=== PATIENT | female | born 1950 | race Caucasian/White ===

== ENCOUNTER 2018-06-25 08:26 | Day surgery (SDC) | payer MEDICARE ==
[~2018-06-25] VITALS: Ht 170.2 cm; Wt 70.3 kg
[~2018-06-25 08:26] MED LIST: CALCAVITD PO; CHRO200 PO; FISH1000 PO; FOLI400 PO; GABA800 PO; GEMF600 PO; LOVA40 PO; Lyrica100 MG PO; MULVITMIND PO; Norco 7.5-3251 EACH PO; Nortriptyline H10 MG PO; OCCUVITE LUTEIN PO; OMEG1CAP30 PO; PREG75 PO; Vitamin B Comple1 EA PO; WARF5 PO; WARF6 PO; [UNRECOGNIZED DRUG - CODE] PO
--- NOTE | 2018-06-25 08:48 | NUR ---
PT ADMITTED TO [facility]. AGREES WITH PLANNED PROCEDURE. TOLERATED BOWEL PREP. STATES LAST BM CLEAR.
--- NOTE | 2018-06-25 08:48 | NUR ---
LUNG SOUNDS CLEAR BUT DIMINSHED.
--- NOTE | 2018-06-25 09:24 | NUR ---
06/25/18 0924 Suleiman eVlazco PATIENT DETERMINED TO BE ASA APPROPRIATE FOR PROPOFOL SEDATION PRIOR TO START OF PROCEDURE BY . 3-LEAD EKG REVIEWED WITH PHYSICIAN PRIOR TO START OF PROCEDURE.PATIENT CONFIRMS NPO STATUS AND AGREES WITH SCHEDULED PROCEDURE.History, Chart, Medications and Allergies reviewed before start of procedure.MONITOR INTACT WITH CONTINUOUS PULSE OXIMETRY AND INTERMITTENT BP.O2 VIA N/C INTACT THROUGHOUT SEDATION/PROCEDURE.
--- NOTE | 2018-06-25 10:49 | NUR ---
Patient up to Ambulate independently. Gait steady. Discharge instructions reviewed with patient. Patient verbalizes understanding. Copy given to patient to take home. Patient States Post-Procedure ride home has been arranged. Discharged via wheelchair to private car for ride home.
== END 2018-06-25 10:49 | disposition home or self-care (01) ==
LOC: ORSCMMR 08:26 → ORD 09:30 → ORSCMMR 10:49
PROVIDERS: Internal Medicine Gastroenterology
PROC: 0DBH8ZX Excision of Cecum, Via Natural or Artificial Opening Endoscopic, Diagnostic (ICD-10-PCS; principal; 2018-06-25 09:30)
PROC: 0DBK8ZX Excision of Ascending Colon, Via Natural or Artificial Opening Endoscopic, Diagnostic (ICD-10-PCS; principal; 2018-06-25 09:30)
PROC: 0DBN8ZX Excision of Sigmoid Colon, Via Natural or Artificial Opening Endoscopic, Diagnostic (ICD-10-PCS; principal; 2018-06-25 09:30)
PROC: 0DBM8ZX Excision of Descending Colon, Via Natural or Artificial Opening Endoscopic, Diagnostic (ICD-10-PCS; principal; 2018-06-25 09:30)
PROC: 0DBP8ZX Excision of Rectum, Via Natural or Artificial Opening Endoscopic, Diagnostic (ICD-10-PCS; principal; 2018-06-25 09:30)
DX: Z12.11 Encounter for screening for malignant neoplasm of colon (principal); Z86.010 Personal history of colon polyps; D12.8 Benign neoplasm of rectum; D12.0 Benign neoplasm of cecum; D12.2 Benign neoplasm of ascending colon; K63.5 Polyp of colon; E78.00 Pure hypercholesterolemia, unspecified; Z79.01 Long term (current) use of anticoagulants; Z79.899 Other long term (current) drug therapy; F17.210 Nicotine dependence, cigarettes, uncomplicated
CPT/HCPCS: 88305; J7120

== ENCOUNTER 2020-07-06 13:25 | Emergency (ER) | payer MEDICARE, OTHER ==
[~2020-07-06] VITALS: Ht 170.2 cm; Wt 68.0 kg
[~2020-07-06 13:25] MED LIST changes: -CALCAVITD PO; +Calcium 600-D1 EACH PO; +Coumadin5 MG PO; +FOLI1 PO; -FOLI400 PO; +LOVASTATIN40 MG PO; +NORTRIPTYLINE H10 MG PO; +PREGABALIN100 MG PO; +TRAM50 PO
[2020-07-06 14:25] LABS: BASOPHILS ABSOLUTE AUTO 0.05 K/mm3 (0.00-0.23); BASOPHILS PERCENT AUTO 1 % (0-2); EOSINOPHILS PERCENT AUTO 1 % (0-6); Hematocrit 48.4 % (33.0-51.0); Hemoglobin 15.7 g/dL (11.5-16.0); IMMATURE GRAN ABSOLUTE AUTO 0.02 K/mm3 (0.00-0.10); IMMATURE GRAN PERCENT AUTO 0 % (0-1); LYMPHOCYTES ABSOLUTE AUTO 2.79 K/mm3 (0.84-5.20); LYMPHOCYTES PERCENT AUTO 31 % (21-46); MONOCYTES ABSOLUTE AUTO 0.81 K/mm3 (0.16-1.47); MONOCYTES PERCENT AUTO 9 % (4-13); Mean Corpuscular HGB 30.4 pg (26.0-34.0); Mean Corpuscular HGB Conc 32.4 g/dL (31.5-36.5); Mean Corpuscular Volume 94 fL (80-100); Mean Platelet Volume 11.1 fL (9.1-12.4); NEUTROPHILS ABSOLUTE AUTO 5.34 K/mm3 (1.96-9.15); NEUTROPHILS PERCENT AUTO 59 % (41-73); Platelet Count 301 K/mm3 (150-400); RDW Coefficient Variation 13.8 % (11.7-14.2); RDW Standard Deviation 47.8 fL (35.1-46.3); Red Blood Cell Count 5.16 M/mm3 (3.80-5.20); White Blood Cell Count 9.11 K/mm3 (4.00-11.30)
[2020-07-06 14:47] LABS: Alanine Aminotransfer (ALT/SGP 24 U/L (12-78); Albumin, Blood 3.4 g/dL (3.4-5.0); Albumin/Globulin Ratio 0.9 (0.8-1.8); Alk Phos 95 U/L (50-136); Anion Gap 2 mmol/L (6-16); Aspartate Aminotrans (AST/SGOT 25 U/L (12-37); Bilirubin, Total 0.3 mg/dL (0.1-1.0); Blood Urea Nitrogen 11 mg/dL (8-24); Bun/Creatinine Ratio 19.4 (12.0-20.0); CO2, Blood 33 mmol/L (21-32); Calcium, Blood 9.6 mg/dL (8.5-10.1); Chloride, Blood 107 mmol/L (98-108); Creatinine, Blood 0.57 mg/dL (0.40-1.00); Globulin, Blood 3.6 g/dL (2.2-4.0); Glomerular Filtration Rate >60 (60-); Glucose, Blood 91 mg/dL (70-99); Potassium, Blood 4.6 mmol/L (3.5-5.5); Sodium, Blood 142 mmol/L (136-145)
[2020-07-06] MEDS ORDERED: Cleocin HCl300 MG PO (16:17)
== END 2020-07-06 16:23 | disposition home or self-care (01) ==
LOC: ER 13:25
PROVIDERS: Physician Assistant
DX: J02.9 Acute pharyngitis, unspecified (principal); I10 Essential (primary) hypertension; E78.5 Hyperlipidemia, unspecified; J44.9 Chronic obstructive pulmonary disease, unspecified; F17.210 Nicotine dependence, cigarettes, uncomplicated; Z79.899 Other long term (current) drug therapy; Z86.73 Personal history of transient ischemic attack (TIA), and cerebral infarction without residual deficits; Z79.01 Long term (current) use of anticoagulants; Z88.0 Allergy status to penicillin
CPT/HCPCS: 36415; 71046; 80053; 85025; 93005; 93010; 99283-25

== ENCOUNTER 2020-08-21 15:35 | Emergency (ER) | payer MEDICARE ==
[~2020-08-21] VITALS: Ht 170.2 cm; Wt 68.0 kg
[~2020-08-21 15:35] MED LIST changes: +Cleocin HCl300 MG PO
[2020-08-21] MEDS ORDERED: BUPROPION XL150 M1 (17:47)
== END 2020-08-21 17:53 | disposition home or self-care (01) ==
LOC: ER 15:35
DX: S62.617A Displaced fracture of proximal phalanx of left little finger, initial encounter for closed fracture (principal); I10 Essential (primary) hypertension; Z79.01 Long term (current) use of anticoagulants; Z79.899 Other long term (current) drug therapy; W19.XXXA Unspecified fall, initial encounter
CPT/HCPCS: 29125; 73120; 99283-25; A9270

== ENCOUNTER → 2021-08-19 | Outpatient (CLI) | payer OTHER ==
[~2021-08-19] MED LIST changes: +BUPROPION XL150 M1
[2021-08-19 19:29] LABS: BASOPHILS ABSOLUTE AUTO 0.08 K/mm3 (0.00-0.23); BASOPHILS PERCENT AUTO 1 % (0-2); EOSINOPHILS ABSOLUTE AUTO 0.18 K/mm3 (0.00-0.68); EOSINOPHILS PERCENT AUTO 2 % (0-6); Hematocrit 47.4 % (33.0-51.0); IMMATURE GRAN ABSOLUTE AUTO 0.04 K/mm3 (0.00-0.10); IMMATURE GRAN PERCENT AUTO 0 % (0-1); LYMPHOCYTES ABSOLUTE AUTO 2.79 K/mm3 (0.84-5.20); LYMPHOCYTES PERCENT AUTO 27 % (21-46); MONOCYTES PERCENT AUTO 8 % (4-13); Mean Corpuscular HGB 29.6 pg (26.0-34.0); Mean Corpuscular HGB Conc 31.6 g/dL (31.5-36.5); Mean Corpuscular Volume 94 fL (80-100); Mean Platelet Volume 11.6 fL (9.1-12.4); NEUTROPHILS ABSOLUTE AUTO 6.45 K/mm3 (1.96-9.15); NEUTROPHILS PERCENT AUTO 62 % (41-73); Platelet Count 326 K/mm3 (150-400); RDW Coefficient Variation 14.3 % (11.7-14.2); RDW Standard Deviation 49.1 fL (35.1-46.3); Red Blood Cell Count 5.06 M/mm3 (3.80-5.20); White Blood Cell Count 10.34 K/mm3 (4.00-11.30)
[2021-08-19 20:16] LABS: Alanine Aminotransfer (ALT/SGP 133 U/L (12-78); Albumin, Blood 3.8 g/dL (3.4-5.0); Albumin/Globulin Ratio 1.1 (0.8-1.8); Alk Phos 136 U/L (50-136); Anion Gap 2 mmol/L (6-16); Aspartate Aminotrans (AST/SGOT 89 U/L (12-37); Bilirubin, Total 0.4 mg/dL (0.1-1.0); Blood Urea Nitrogen 18 mg/dL (8-24); Bun/Creatinine Ratio 30.5 (12.0-20.0); CO2, Blood 33 mmol/L (21-32); Calcium, Blood 9.7 mg/dL (8.5-10.1); Chloride, Blood 104 mmol/L (98-108); Creatinine, Blood 0.59 mg/dL (0.40-1.00); Globulin, Blood 3.6 g/dL (2.2-4.0); Glomerular Filtration Rate >60 (60-); Glucose, Blood 104 mg/dL (70-99); Magnesium, Blood 2.2 mg/dL (1.6-2.4); Phosphorus, Blood 3.2 mg/dL (2.5-4.9); Sodium, Blood 139 mmol/L (136-145); Total Protein, Blood 7.4 g/dL (6.4-8.2)
== END | disposition home or self-care (01) ==
LOC: LAB SHORT 18:49
PROVIDERS: Family Medicine
DX: R56.9 Unspecified convulsions (principal)
CPT/HCPCS: 80053; 82607; 82746; 83735; 84100; 84443; 85025; 86592

== ENCOUNTER 2022-03-18 15:46 | Emergency (ER) | payer MEDICARE ==
[~2022-03-18] VITALS: Ht 170.2 cm; Wt 68.0 kg
== END 2022-03-18 17:58 | disposition home or self-care (01) ==
LOC: ER 15:46
DX: S63.250A Unspecified dislocation of right index finger, initial encounter (principal); V48.4XXA Person boarding or alighting a car injured in noncollision transport accident, initial encounter; I10 Essential (primary) hypertension; J44.9 Chronic obstructive pulmonary disease, unspecified; E78.5 Hyperlipidemia, unspecified; F17.210 Nicotine dependence, cigarettes, uncomplicated; Z79.899 Other long term (current) drug therapy; Z79.01 Long term (current) use of anticoagulants; Z88.0 Allergy status to penicillin
CPT/HCPCS: 73130

== ENCOUNTER 2022-12-05 17:12 | Emergency (ER) | payer MEDICARE ==
[~2022-12-05] VITALS: Ht 170.2 cm; Wt 68.0 kg
[2022-12-05] MEDS ORDERED: Percocet 5-3251 EACH PO (18:55)
[2022-12-05 19:10] VITALS: BP 153/85
== END 2022-12-05 19:25 | disposition home or self-care (01) ==
LOC: ER 17:12
DX: S09.90XA Unspecified injury of head, initial encounter (principal); S22.31XA Fracture of one rib, right side, initial encounter for closed fracture; W18.30XA Fall on same level, unspecified, initial encounter; Z88.0 Allergy status to penicillin; Z79.01 Long term (current) use of anticoagulants; Z79.899 Other long term (current) drug therapy; I10 Essential (primary) hypertension; J44.9 Chronic obstructive pulmonary disease, unspecified; E78.5 Hyperlipidemia, unspecified; F17.210 Nicotine dependence, cigarettes, uncomplicated
CPT/HCPCS: 70450; 71101; A9270

== ENCOUNTER 2022-12-13 12:37 | Emergency (ER) | payer MEDICARE ==
[~2022-12-13] VITALS: Ht 170.2 cm; Wt 68.0 kg
[~2022-12-13 12:37] MED LIST changes: +Percocet 5-3251 EACH PO
[2022-12-13 12:45] VITALS: BP 149/100
== END 2022-12-13 13:57 | disposition home or self-care (01) ==
LOC: ER 12:37
DX: R51.9 Headache, unspecified (principal); S09.90XD Unspecified injury of head, subsequent encounter; W19.XXXD Unspecified fall, subsequent encounter; I10 Essential (primary) hypertension; J44.9 Chronic obstructive pulmonary disease, unspecified; E78.5 Hyperlipidemia, unspecified; Z88.0 Allergy status to penicillin; Z79.899 Other long term (current) drug therapy; Z79.01 Long term (current) use of anticoagulants; F17.210 Nicotine dependence, cigarettes, uncomplicated
CPT/HCPCS: 70450; 99284-25

== ENCOUNTER 2022-12-22 22:37 | Emergency (ER) | payer MEDICARE ==
[~2022-12-22] VITALS: Ht 170.2 cm; Wt 72.6 kg
[~2022-12-22 22:37] MED LIST changes: -BUPROPION XL150 M1; +BUPROPION XL150 M1 PO
[2022-12-23 01:00] VITALS: BP 190/65
== END 2022-12-23 01:50 | disposition home or self-care (01) ==
LOC: ER 22:37
DX: S01.122A Laceration with foreign body of left eyelid and periocular area, initial encounter (principal); W18.09XA Striking against other object with subsequent fall, initial encounter; Z88.0 Allergy status to penicillin; Z79.01 Long term (current) use of anticoagulants; Z79.899 Other long term (current) drug therapy; I10 Essential (primary) hypertension; E78.5 Hyperlipidemia, unspecified; F17.210 Nicotine dependence, cigarettes, uncomplicated; Z23 Encounter for immunization
CPT/HCPCS: 12011; 70450; 90471; 90715; 99283-25; A9270

== ENCOUNTER 2022-12-23 14:01 | Emergency (ER) | payer MEDICARE ==
[~2022-12-23] VITALS: Ht 170.2 cm; Wt 72.6 kg
[2022-12-23 15:26] LABS: BASOPHILS ABSOLUTE AUTO 0.06 K/mm3 (0.00-0.23); BASOPHILS PERCENT AUTO 1 % (0-2); EOSINOPHILS ABSOLUTE AUTO 0.16 K/mm3 (0.00-0.68); EOSINOPHILS PERCENT AUTO 2 % (0-6); Hematocrit 42.2 % (33.0-51.0); Hemoglobin 13.8 g/dL (11.5-16.0); IMMATURE GRAN ABSOLUTE AUTO 0.02 K/mm3 (0.00-0.10); IMMATURE GRAN PERCENT AUTO 0 % (0-1); LYMPHOCYTES ABSOLUTE AUTO 1.81 K/mm3 (0.84-5.20); LYMPHOCYTES PERCENT AUTO 21 % (21-46); MONOCYTES ABSOLUTE AUTO 0.88 K/mm3 (0.16-1.47); MONOCYTES PERCENT AUTO 10 % (4-13); Mean Corpuscular HGB 29.6 pg (26.0-34.0); Mean Corpuscular HGB Conc 32.7 g/dL (31.5-36.5); Mean Corpuscular Volume 90 fL (80-100); Mean Platelet Volume 10.8 fL (9.1-12.4); NEUTROPHILS ABSOLUTE AUTO 5.73 K/mm3 (1.96-9.15); NEUTROPHILS PERCENT AUTO 66 % (41-73); Platelet Count 258 K/mm3 (150-400); RDW Coefficient Variation 14.6 % (11.7-14.2); RDW Standard Deviation 48.7 fL (35.1-46.3); Red Blood Cell Count 4.67 M/mm3 (3.80-5.20); White Blood Cell Count 8.66 K/mm3 (4.00-11.30)
[2022-12-23 15:42] LABS: Albumin, Blood 3.3 g/dL (3.4-5.0); Albumin/Globulin Ratio 0.9 (0.8-1.8); Bilirubin, Total 0.4 mg/dL (0.1-1.0); Calcium, Blood 9.1 mg/dL (8.5-10.1); Creatinine, Blood 0.69 mg/dL (0.40-1.00); Globulin, Blood 3.5 g/dL (2.2-4.0); Potassium, Blood 4.1 mmol/L (3.5-5.5); Total Protein, Blood 6.8 g/dL (6.4-8.2)
[2022-12-23 15:58] VITALS: BP 133/60
== END 2022-12-23 18:34 | disposition home or self-care (01) ==
LOC: ER 14:01
PROVIDERS: Student in an Organized Health Care Education/Training Program
DX: H53.8 Other visual disturbances (principal); S00.1 Contusion of eyelid and periocular area; W19.XXXS Unspecified fall, sequela; Z88.0 Allergy status to penicillin; Z79.899 Other long term (current) drug therapy; Z79.01 Long term (current) use of anticoagulants; I10 Essential (primary) hypertension; J44.9 Chronic obstructive pulmonary disease, unspecified; E78.5 Hyperlipidemia, unspecified; Z86.718 Personal history of other venous thrombosis and embolism; F17.210 Nicotine dependence, cigarettes, uncomplicated
CPT/HCPCS: 80053; 85025; 93005; 93010; 99283-25; A9270

== ENCOUNTER 2023-04-19 11:50 | Day surgery (SDC) | payer MEDICARE ==
[~2023-04-19] VITALS: Ht 170.2 cm; Wt 75.5 kg
[2023-04-19] MEDS ORDERED: FISH OIL 1,0001 EA10 PO (12:59)
[2023-04-19] MEDS ORDERED: Aspir 8181 MG PO (13:01)
--- NOTE | 2023-04-19 13:55 | NUR ---
04/19/23 1355 Karla Dubon PT'S O2 SATS PRIMARILY STAYED BETWEEN 87-90% THROUGHOUT PREOP STAY. THE HIGHEST SPO2 READING WAS ONE OCCASION IN WHICH SPO2 WAS 92% MOMENTARILY BEFORE DROPPING BACK DOWN TO 88%. PT REPORTS SOB FOR THE LAST 4-6 WEEKS. STATES SHE HAS TALKED TO HER PCP ABOUT THIS AND THAT THIS WAS ABOUT THE TIME THAT SHE ALSO STARTED HAVING ABDOMINAL DISCOMFORT. DR WINTERS ORDERED CXR AND IMAGING CAME TO [facility] TO PERFORM CXR. PT DENIES RECENT COUGH, FEVER. PT VERBALIZES THAT SHE WAS TOLD AT A RECENT DOCTOR APPT THAT HER OXYGEN LEVEL WAS 88% AND THAT THIS WAS REALLY LOW. AT TIMES T/O PREOP STAY PATIENT'S RESPIRATIONS APPEAR LABORED AND AT OTHER TIMES SHE APPEARS TO BREATHING WITHOUT MUCH DIFFICULTY. LS ARE CLEAR BUT DECREASED T/O. ESPECIALLY ON RAF. AFTER CONSULTATION BETWEEN DR WINTERS AND DR DIXON, IT WAS DECIDED TO PROCEED WITH PROCEDURE UNDER MAC SEDATION.
--- NOTE | 2023-04-19 13:58 | NUR ---
04/19/23 1358 Lily So LIDOCAINE 2% WITH EPI 1:100,000 DILUTED 1:1 WITH NORMAL SALINE TO MAKE LIDOCAINE 1% WITH EPI 1:200,000 FOR INJECTION [address] [facility] BY DR DIXON.
[2023-04-19 14:33] VITALS: BP 153/95
--- NOTE | 2023-04-19 14:37 | NUR ---
04/19/23 1437 Troy Wagner PT TRANSFERED FROM PACU TO ED, PER DR. WINTERS ORDERS. IV SALINE LOCKED. WHEEZES ASCULTATED IN R UPPER LUNG LOBE. PT MAINTAING O2 SATURATION 86-90% ON RA.
[2023-04-19] MEDS ORDERED: WARF2.5 PO (22:32)
[2023-04-19] MEDS ORDERED: WARF5 PO (22:32)
== END 2023-04-19 16:00 | disposition home or self-care (01) ==
LOC: ORSCSDS 11:50
PROVIDERS: Otolaryngology
PROC: 07B20ZX Excision of Left Neck Lymphatic, Open Approach, Diagnostic (ICD-10-PCS; principal; 2023-04-19 13:15)
DX: R59.0 Localized enlarged lymph nodes (principal); C83.31 Diffuse large B-cell lymphoma, lymph nodes of head, face, and neck; G40.909 Epilepsy, unspecified, not intractable, without status epilepticus; Z86.718 Personal history of other venous thrombosis and embolism; Z79.01 Long term (current) use of anticoagulants; Z79.899 Other long term (current) drug therapy; Z79.82 Long term (current) use of aspirin; Z87.891 Personal history of nicotine dependence
CPT/HCPCS: 71045; 88184; 88185; 88305; J0171; J2704; J3010; J7120

== ENCOUNTER 2023-04-19 14:51 | Observation (INO) | payer MEDICARE ==
[~2023-04-19] VITALS: Ht 170.2 cm; Wt 76.9 kg
[~2023-04-19 14:51] MED LIST changes: +Aspir 8181 MG PO; +FISH OIL 1,0001 EA10 PO
[2023-04-19 15:35] LABS: BASOPHILS ABSOLUTE AUTO 0.06 K/mm3 (0.00-0.23); BASOPHILS PERCENT AUTO 1 % (0-2); EOSINOPHILS ABSOLUTE AUTO 0.07 K/mm3 (0.00-0.68); EOSINOPHILS PERCENT AUTO 1 % (0-6); Hematocrit 42.3 % (33.0-51.0); Hemoglobin 12.9 g/dL (11.5-16.0); IMMATURE GRAN ABSOLUTE AUTO 0.05 K/mm3 (0.00-0.10); IMMATURE GRAN PERCENT AUTO 1 % (0-1); LYMPHOCYTES PERCENT AUTO 20 % (21-46); MONOCYTES ABSOLUTE AUTO 0.88 K/mm3 (0.16-1.47); MONOCYTES PERCENT AUTO 12 % (4-13); Mean Corpuscular HGB 27.9 pg (26.0-34.0); Mean Corpuscular HGB Conc 30.5 g/dL (31.5-36.5); Mean Corpuscular Volume 92 fL (80-100); Mean Platelet Volume 10.8 fL (9.1-12.4); NEUTROPHILS ABSOLUTE AUTO 5.04 K/mm3 (1.96-9.15); NEUTROPHILS PERCENT AUTO 66 % (41-73); Platelet Count 170 K/mm3 (150-400); RDW Coefficient Variation 14.9 % (11.7-14.2); RDW Standard Deviation 49.9 fL (35.1-46.3); Red Blood Cell Count 4.62 M/mm3 (3.80-5.20)
[2023-04-19 16:02] LABS: Albumin, Blood 2.6 g/dL (3.4-5.0); Albumin/Globulin Ratio 0.7 (0.8-1.8); Bilirubin, Total 0.6 mg/dL (0.1-1.0); Bun/Creatinine Ratio 15.7 (12.0-20.0); Calcium, Blood 7.7 mg/dL (8.5-10.1); Creatinine, Blood 0.64 mg/dL (0.40-1.00); Globulin, Blood 3.6 g/dL (2.2-4.0); Potassium, Blood 4.1 mmol/L (3.5-5.5); Total Protein, Blood 6.2 g/dL (6.4-8.2)
[2023-04-19 16:21] LABS: Influenza A, PCR NEGATIVE (NEGATIVE); Influenza B, PCR NEGATIVE (NEGATIVE); Resp Syncytial Virus, PCR NEGATIVE (NEGATIVE); SARS-Cov-2 (COVID-19) PCR, MMC NEGATIVE (NEGATIVE)
[2023-04-19] MEDS ORDERED: FentaNYL Citrate 50 MCG/ML 2 ML Injection IV ONE (17:20)
[2023-04-19 17:53] LABS: International Normalized Ratio 1.14; Prothrombin Time Results 11.9 Sec (9.7-11.5)
[2023-04-19 18:00] LABS: Base Excess Venous 5.8 mmol/L; Bicarbonate Venous 28.6 mmol/L (24.0-30.0); PCO2 Venous 50.6 mmHg (38-42); pH Blood Venous 7.39 (7.34-7.37)
[2023-04-19] MEDS ORDERED: Furosemide 10 MG/ML 4ML Vial IV ONE (20:00)
[2023-04-19] MEDS ORDERED: Ipratropium/Albuterol SulF 2.5-0.5MG/3 ML Amp INH SCH (20:45)
[2023-04-19] MEDS ORDERED: FLU VACC QS2023-24(6MOS UP)/PF 60 MCG/0.5 ML SYRINGE IM SCH (20:50)
[2023-04-19] MEDS ORDERED: Morphine Sulfate 4 MG/1 ML Injection IV PRN (20:50)
[2023-04-19] MEDS ORDERED: Ondansetron HCl 2 MG / ML 2ML Vial IV PRN (20:50)
[2023-04-19] MEDS ORDERED: Ipratropium/Albuterol SulF 2.5-0.5MG/3 ML Amp INH ONE (21:00)
[2023-04-19] MEDS ORDERED: Enoxaparin 40 MG/0.4 ML SYR SC ONE (21:00)
[2023-04-19] MEDS ORDERED: WARF5 PO (22:32)
[2023-04-19] MEDS ORDERED: WARF2.5 PO (22:32)
--- NOTE | 2023-04-19 22:33 | NUR ---
ADMIT NOTE RECEIVED REPORT FROM PORTABLE GRINDING MACHINE OPERATORALTAF LINK. PT ARRIVED TO FLOOR VIA JIMMYRAYAAN. PT ORIENTED TO UNIT CALL BUTTON WITHIN REACH. PERSONAL POSSESSIONS WITH PT. 2 LPM O2 VIA NC.
[2023-04-19] MEDS ORDERED: Warfarin Sodium 5 MG Tab PO ONE (22:35)
[2023-04-19 22:45] VITALS: BP 146/65
[2023-04-20 02:30] VITALS: BP 149/65
--- NOTE | 2023-04-20 04:13 | NUR ---
SHIFT SUMMARY ADMITTED FOR HYPOXIA/DR. LUND. FULL CODE. 2 LPM O2 VIA NC. SHE IS ON RA AT HOME. A&O X4, ON RA. STANDBY ASSIST TO BSC. LASIX IS SCHEDULED. LYMPH NODE BIOPSY PERFORMED OUTPT TODAY PREVIOUS TO ADMIT. PAIN MEDICATION GIVEN ONCE THIS SHIFT. REGULAR DIET. RESPIRATORY PANEL NEGATIVE.
[2023-04-20 05:05] LABS: International Normalized Ratio 1.15
[2023-04-20 05:11] LABS: Bun/Creatinine Ratio 17.5 (12.0-20.0); Calcium, Blood 8.4 mg/dL (8.5-10.1); Creatinine, Blood 0.63 mg/dL (0.40-1.00); Potassium, Blood 4.1 mmol/L (3.5-5.5)
[2023-04-20 07:32] VITALS: BP 140/53
[2023-04-20] MEDS ORDERED: Furosemide 10 MG / ML 2ML Vial IV SCH (09:00)
[2023-04-20 15:49] VITALS: BP 150/63
[2023-04-20] MEDS ORDERED: Warfarin Sodium 7.5 MG Tab PO ONE (18:00)
--- NOTE | 2023-04-20 19:21 | NUR ---
DISCHARGE HOME PT DISCHARGED HOME. HOME MEDICATIONS RETRIEVED FROM PHARMACY AND GIVEN TO PT. IV REMOVED AND PRESSURE DRESSING APPLIED. PT HAS HER HOME OXYGEN TANK SET AT 2L N/C. SHE HAS [employer] CARD TO CALL WHEN SHE GETS HOME. CARE ON GOING.
== END 2023-04-20 19:20 | disposition home or self-care (01) ==
LOC: ER 14:51 → MEDS 14:52
PROVIDERS: Nurse Practitioner Acute Care; Student in an Organized Health Care Education/Training Program; ADMIT Internal Medicine
DX: J96.01 Acute respiratory failure with hypoxia (principal); J96.02 Acute respiratory failure with hypercapnia; J81.1 Chronic pulmonary edema; C85.94 Non-Hodgkin lymphoma, unspecified, lymph nodes of axilla and upper limb; C85.91 Non-Hodgkin lymphoma, unspecified, lymph nodes of head, face, and neck; J44.9 Chronic obstructive pulmonary disease, unspecified; I10 Essential (primary) hypertension; E78.5 Hyperlipidemia, unspecified; I73.9 Peripheral vascular disease, unspecified; F17.210 Nicotine dependence, cigarettes, uncomplicated; Z86.718 Personal history of other venous thrombosis and embolism; Z88.0 Allergy status to penicillin; Z79.01 Long term (current) use of anticoagulants; Z79.82 Long term (current) use of aspirin; Z79.899 Other long term (current) drug therapy; R59.0 Localized enlarged lymph nodes; C83.31 Diffuse large B-cell lymphoma, lymph nodes of head, face, and neck; G40.909 Epilepsy, unspecified, not intractable, without status epilepticus
CPT/HCPCS: 0241U; 36415; 71045; 71260; 80048; 80053; 82803; 83735; 83880; 84145; 84484; 85025; 85379; 85610; 88305; 93005; 93010; 93306; 94640; 94664; 94760; 94761; 96372; 96374; 96375; 96376; 99285-25; A9270; G0008; G0378; J0171; J1650; J1940; J2270; J2704; J3010; J7120; Q2036; Q9967

== ENCOUNTER → 2023-04-27 | Outpatient (CLI) | payer MEDICARE ==
[~2023-04-27] MED LIST changes: +WARF2.5 PO
[2023-04-27 20:18] LABS: Albumin, Blood 2.7 g/dL (3.4-5.0); Albumin/Globulin Ratio 0.8 (0.8-1.8); Bilirubin, Total 0.5 mg/dL (0.1-1.0); Bun/Creatinine Ratio 18.1 (12.0-20.0); Calcium, Blood 8.8 mg/dL (8.5-10.1); Creatinine, Blood 0.77 mg/dL (0.40-1.00); Globulin, Blood 3.4 g/dL (2.2-4.0); Phosphorus, Blood 3.3 mg/dL (2.5-4.9); Potassium, Blood 4.7 mmol/L (3.5-5.5); Total Protein, Blood 6.1 g/dL (6.4-8.2); Uric Acid, Blood 8.3 mg/dL (2.6-6.0)
== END ==
LOC: LAB 17:30 → LAB SHORT 17:30
PROVIDERS: Internal Medicine Hematology & Oncology
DX: C85.91 Non-Hodgkin lymphoma, unspecified, lymph nodes of head, face, and neck (principal)
CPT/HCPCS: 80053; 83615; 84100; 84550

== ENCOUNTER → 2023-05-05 | Outpatient (CLI) | payer MEDICARE ==
[2023-05-05 17:44] LABS: Bilirubin, Total 0.3 mg/dL (0.1-1.0); Bun/Creatinine Ratio 31.5 (12.0-20.0); Calcium, Blood 8.8 mg/dL (8.5-10.1); Creatinine, Blood 0.54 mg/dL (0.40-1.00); Phosphorus, Blood 3.6 mg/dL (2.5-4.9); Potassium, Blood 4.3 mmol/L (3.5-5.5)
== END | disposition home or self-care (01) ==
LOC: LAB SHORT 14:46 → LAB 14:46
PROVIDERS: Internal Medicine Hematology & Oncology
DX: C85.91 Non-Hodgkin lymphoma, unspecified, lymph nodes of head, face, and neck (principal)
CPT/HCPCS: 80053; 83615; 84100

== ENCOUNTER → 2023-05-31 | Outpatient (CLI) | payer MEDICARE ==
[2023-05-31 17:39] LABS: Uric Acid, Blood 5.1 mg/dL (2.6-6.0)
[2023-06-01 09:11] LABS: A/G RATIO 1.8 (1.2-2.2); ALKALINE PHOSPHATASE, S 72 IU/L (44-121); ALT (SGPT) 14 IU/L (0-32); AST (SGOT) 22 IU/L (0-40); BILIRUBIN, TOTAL 0.7 mg/dL (0.0-1.2); BUN 12 mg/dL (8-27); BUN/CREATININE RATIO 18 (12-28); CALCIUM, SERUM 9.3 mg/dL (8.7-10.3); CARBON DIOXIDE, TOTAL 25 mmol/L (20-29); CHLORIDE, SERUM 105 mmol/L (96-106); CREATININE, SERUM 0.67 mg/dL (0.57-1.00); GLOBULIN, TOTAL 2.2 g/dL (1.5-4.5); GLUCOSE, SERUM 135 mg/dL (70-99); POTASSIUM, SERUM 4.2 mmol/L (3.5-5.2); PROTEIN, TOTAL, SERUM 6.1 g/dL (6.0-8.5); SODIUM, SERUM 143 mmol/L (134-144)
== END | disposition home or self-care (01) ==
LOC: LAB 10:00 → LAB SHORT 10:00
PROVIDERS: Internal Medicine Hematology & Oncology
DX: C85.91 Non-Hodgkin lymphoma, unspecified, lymph nodes of head, face, and neck (principal)
CPT/HCPCS: 80053; 80069; 83615; 84550

== ENCOUNTER 2023-06-07 07:59 | Day surgery (SDC) | payer MEDICARE ==
--- NOTE | 2023-06-07 08:22 | NUR ---
PT ARRIVING TO [facility] AND REPORTING THAT SHE HAD DRANK YAKUT CREAM AT APPROX 0200 WELL TOOK BOTH HER ASPIRIN AND WARFARIN ON 06/06/23. DR. BANEGAS NOTIFIED OF THIS AND THE PROCEDURE IS CANCELLED.
== END 2023-06-07 23:23 | disposition home or self-care (01) ==
LOC: ORSCMMR 07:59 → ORD 09:30 → ORSCMMR 09:30
DX: C85.91 Non-Hodgkin lymphoma, unspecified, lymph nodes of head, face, and neck (principal); Z53.9 Procedure and treatment not carried out, unspecified reason

== ENCOUNTER 2023-06-16 07:58 | Day surgery (SDC) | payer MEDICARE ==
[~2023-06-16] VITALS: Ht 170.2 cm; Wt 72.5 kg
[2023-06-16] VITALS (10 sets, daily range): BP systolic 140–186; BP diastolic 60–89
[~2023-06-16 07:58] MED LIST changes: +CeFAZolin Sodium 2,000 MG in NS 50 ML IV SCH; +Lactated Ringer's 1,000 ML IV SCH
[2023-06-16] MEDS ORDERED: FURO40 PO (08:58)
[2023-06-16] MEDS ORDERED: ALLO300 PO (08:58)
[2023-06-16] MEDS ORDERED: POTA10T PO (08:58)
[2023-06-16] MEDS ORDERED: ASPI81CH PO (08:59)
--- NOTE | 2023-06-16 09:02 | NUR ---
Ambulatory in Day Surgery History, Chart, Medications and Allergies reviewed before start of procedure. Pre-Op teaching done. Pt verbalizes understanding. Patient States Post-Procedure ride home has been arranged.
[2023-06-16] MEDS ORDERED: Bupivacaine 0.5% HCl 5 MG/ML 30MLVIAL ONE (09:33)
[2023-06-16] MEDS ORDERED: LOVA40 PO (09:50)
[2023-06-16] MEDS ORDERED: PREG75 PO (09:51)
[2023-06-16] MEDS ORDERED: OCUVITE BLUE L1 EACH PO (09:58)
[2023-06-16] MEDS ORDERED: propofoL 20 ML IV ONE (10:00)
[2023-06-16] MEDS ORDERED: FentaNYL Citrate 50 MCG/ML 2 ML Injection ONE (10:00)
[2023-06-16] MEDS ORDERED: Ondansetron HCl 2 MG / ML 2ML Vial ONE (10:01)
[2023-06-16] MEDS ORDERED: Dexamethasone Sod Phos 10 MG/ML 1ML VIAL ONE (10:01)
[2023-06-16 10:04] LABS: International Normalized Ratio 1.04; Prothrombin Time Results 10.9 Sec (9.7-11.5)
[2023-06-16 10:18] LABS: Bun/Creatinine Ratio 35.1 (12.0-20.0); Calcium, Blood 9.4 mg/dL (8.5-10.1); Creatinine, Blood 0.6 mg/dL (0.40-1.00); Potassium, Blood 3.8 mmol/L (3.5-5.5)
[2023-06-16] MEDS ORDERED: Ketorolac Tromethamine 30mg Vial ONE (10:26)
[2023-06-16] MEDS ORDERED: Droperidol 5 mg/2 ml Vial IV PRN (10:30)
[2023-06-16] MEDS ORDERED: FentaNYL Citrate 50 MCG/ML 2 ML Injection IV PRN (10:30)
[2023-06-16] MEDS ORDERED: Albuterol 2.5 MG/3 ML VIAL INH PRN (10:30)
[2023-06-16] MEDS ORDERED: HYDROmorphone HCl/Pf 1MG SYR IV PRN (10:35)
--- NOTE | 2023-06-16 12:16 | NUR ---
Discharge instructions reviewed with patient. Patient verbalizes understanding. Copy given to patient to take home. Patient States Post-Procedure ride home has been arranged. Physical prescription given to pt's corporate driver. Discharged via wheelchair to private car for ride home.
== END 2023-06-16 12:15 | disposition home or self-care (01) ==
LOC: ORSCMMR 07:58 → ORD 09:15 → ORSCMMR 09:15
PROVIDERS: Surgery
PROC: 0JH63WZ Insertion of Totally Implantable Vascular Access Device into Chest Subcutaneous Tissue and Fascia, Percutaneous Approach (ICD-10-PCS; principal; 2023-06-16 09:15)
PROC: B543ZZA Ultrasonography of Right Jugular Veins, Guidance (ICD-10-PCS; principal; 2023-06-16 09:15)
PROC: 05HM33Z Insertion of Infusion Device into Right Internal Jugular Vein, Percutaneous Approach (ICD-10-PCS; principal; 2023-06-16 09:15)
DX: C83.38 Diffuse large B-cell lymphoma, lymph nodes of multiple sites (principal); Z79.01 Long term (current) use of anticoagulants; F17.210 Nicotine dependence, cigarettes, uncomplicated; J44.9 Chronic obstructive pulmonary disease, unspecified; E11.9 Type 2 diabetes mellitus without complications; E78.5 Hyperlipidemia, unspecified; I10 Essential (primary) hypertension; Z79.899 Other long term (current) drug therapy; Z79.82 Long term (current) use of aspirin
CPT/HCPCS: 36415; 77001; 80048; 82947; 85610; C1788; J0690; J1100; J1642; J1885; J2405; J2704; J3010; J7120

== ENCOUNTER → 2023-06-27 | Outpatient (CLI) | payer MEDICARE ==
[~2023-06-27] MED LIST changes: +ALLO300 PO; +ASPI81CH PO; -CeFAZolin Sodium 2,000 MG in NS 50 ML IV SCH; +FURO40 PO; -Lactated Ringer's 1,000 ML IV SCH; +OCUVITE BLUE L1 EACH PO; +POTA10T PO
[2023-06-27 20:21] LABS: Albumin, Blood 3.4 g/dL (3.4-5.0); Albumin/Globulin Ratio 1.1 (0.8-1.8); Bilirubin, Total 1.7 mg/dL (0.1-1.0); Bun/Creatinine Ratio 29.9 (12.0-20.0); Calcium, Blood 9.1 mg/dL (8.5-10.1); Creatinine, Blood 0.54 mg/dL (0.40-1.00); Phosphorus, Blood 2.8 mg/dL (2.5-4.9); Potassium, Blood 4.2 mmol/L (3.5-5.5); Total Protein, Blood 6.4 g/dL (6.4-8.2)
== END | disposition home or self-care (01) ==
LOC: LAB 17:13 → LAB SHORT 17:13
PROVIDERS: Internal Medicine Hematology & Oncology
DX: R19.7 Diarrhea, unspecified (principal)
CPT/HCPCS: 80053; 84100

== ENCOUNTER 2023-06-29 21:40 | Emergency (ER) | payer MEDICARE ==
[~2023-06-29] VITALS: Ht 165.1 cm; Wt 77.1 kg
[2023-06-29 21:51] VITALS: BP 141/65
[2023-06-29 22:14] LABS: BASOPHILS ABSOLUTE AUTO 0.02 K/mm3 (0.00-0.23); BASOPHILS PERCENT AUTO 1 % (0-2); EOSINOPHILS PERCENT AUTO 0 % (0-6); Hematocrit 37.1 % (33.0-51.0); Hemoglobin 11.6 g/dL (11.5-16.0); IMMATURE GRAN ABSOLUTE AUTO 0.02 K/mm3 (0.00-0.10); IMMATURE GRAN PERCENT AUTO 1 % (0-1); LYMPHOCYTES PERCENT AUTO 50 % (21-46); MONOCYTES ABSOLUTE AUTO 0.16 K/mm3 (0.16-1.47); MONOCYTES PERCENT AUTO 5 % (4-13); Mean Corpuscular HGB 27.9 pg (26.0-34.0); Mean Corpuscular HGB Conc 31.3 g/dL (31.5-36.5); Mean Corpuscular Volume 89 fL (80-100); Mean Platelet Volume 11.1 fL (9.1-12.4); NEUTROPHILS ABSOLUTE AUTO 1.28 K/mm3 (1.96-9.15); NEUTROPHILS PERCENT AUTO 43 % (41-73); Platelet Count 263 K/mm3 (150-400); RDW Coefficient Variation 16.3 % (11.7-14.2); RDW Standard Deviation 53.5 fL (35.1-46.3); Red Blood Cell Count 4.16 M/mm3 (3.80-5.20); White Blood Cell Count 2.98 K/mm3 (4.00-11.30)
[2023-06-29 22:38] LABS: Ethanol (Alcohol), Blood, Med <3 mg/dL
[2023-06-29 22:39] LABS: Magnesium, Blood 1.8 mg/dL (1.6-2.4)
[2023-06-29] MEDS ORDERED: Lactated Ringer's 1,000 ML IV ONE (22:40)
[2023-06-29 22:50] LABS: Alanine Aminotransfer (ALT/SGP 25 U/L (12-78); Albumin, Blood 3.5 g/dL (3.4-5.0); Alk Phos 68 U/L (50-136); Anion Gap Unable to Calculate mmol/L (6-16); Aspartate Aminotrans (AST/SGOT 18 U/L (12-37); Bilirubin, Total 0.3 mg/dL (0.1-1.0); Blood Urea Nitrogen 13 mg/dL (8-24); Bun/Creatinine Ratio 19.1 (12.0-20.0); CO2, Blood 33 mmol/L (21-32); Calcium, Blood 9.3 mg/dL (8.5-10.1); Chloride, Blood 107 mmol/L (98-108); Creatinine, Blood 0.68 mg/dL (0.40-1.00); Globulin, Blood 3.6 g/dL (2.2-4.0); Glomerular Filtration Rate 93 (60-); Glucose, Blood 212 mg/dL (70-99); Potassium, Blood 4.8 mmol/L (3.5-5.5); Sodium, Blood 139 mmol/L (136-145); Total Protein, Blood 7.1 g/dL (6.4-8.2)
[2023-06-29 22:54] LABS: Base Excess Venous 3.2 mmol/L; Bicarbonate Venous 25.8 mmol/L (24.0-30.0); PCO2 Venous 68.9 mmHg (38-42); pH Blood Venous 7.25 (7.34-7.37)
[2023-06-29 23:10] LABS: International Normalized Ratio 1.08; Prothrombin Time Results 11.3 Sec (9.7-11.5)
[2023-06-29 23:36] LABS: Influenza A, PCR NEGATIVE (NEGATIVE); Influenza B, PCR NEGATIVE (NEGATIVE); Resp Syncytial Virus, PCR NEGATIVE (NEGATIVE); SARS-Cov-2 (COVID-19) PCR, MMC NEGATIVE (NEGATIVE)
[2023-06-30 00:15] LABS: Source, Urine Clean Catch
[2023-06-30 00:34] LABS: Base Excess Venous 5.1 mmol/L; Bicarbonate Venous 27.4 mmol/L (24.0-30.0); PCO2 Venous 64.1 mmHg (38-42)
[2023-06-30 00:36] LABS: Bilirubin, Urine Neg (Neg); Blood, Urine Neg (Neg); Glucose Qualitative, Urine Neg (Neg); Ketones, Urine 1+ (Neg); Leukocyte Esterase, Urine Neg (Neg); Nitrite, Urine Neg (Neg); Protein, Urine 2+ (Neg); Specific Gravity, Urine 1.025 (1.003-1.022); Urobilinogen, Urine NORM (Normal)
[2023-06-30 00:47] LABS: Appearance, Urine Hazy (Clear); Color, Urine Yellow (P-Yellow)
[2023-06-30 00:49] LABS: Bacteria Few /hpf; Red Blood Cells, Urine 0-2 /hpf (0-2); Squamous Epithelial Cells Not Seen /hpf (Few); White Blood Cells, Urine 0-2 /hpf (0-5)
[2023-06-30 01:11] LABS: U Amphetamine Screen Not Detected; U Barbituate Screen Not Detected; U Benzodiazapine Screen Not Detected; U Buprenorphine Screen Not Detected; U Cannabinoids Screen DETECTED; U Cocaine Screen Not Detected; U Methadone Screen Not Detected; U Methamphetamine Screen Not Detected; U Opiates Screen Not Detected; U Oxycodone Screen Not Detected; U Phencyclidine Screen Not Detected
== END 2023-06-30 00:52 | disposition home or self-care (01) ==
LOC: ER 21:40
PROVIDERS: Emergency Medicine
DX: J96.92 Respiratory failure, unspecified with hypercapnia (principal); J96.91 Respiratory failure, unspecified with hypoxia; J44.1 Chronic obstructive pulmonary disease with (acute) exacerbation; C85.90 Non-Hodgkin lymphoma, unspecified, unspecified site; Z91.199 Patient's noncompliance with other medical treatment and regimen due to unspecified reason; I10 Essential (primary) hypertension; E78.5 Hyperlipidemia, unspecified; I73.9 Peripheral vascular disease, unspecified; F17.210 Nicotine dependence, cigarettes, uncomplicated; Z88.0 Allergy status to penicillin; Z79.899 Other long term (current) drug therapy; Z79.01 Long term (current) use of anticoagulants; Z79.82 Long term (current) use of aspirin
CPT/HCPCS: 0241U; 36415; 70450; 71045; 80053; 81001; 82803; 83605; 83735; 83880; 84145; 84484; 85025; 85610; 93005; 93010; 99285-25; J7120

== ENCOUNTER 2023-08-29 17:28 | Inpatient (IN) | payer MEDICARE ==
[~2023-08-29] VITALS: Ht 175.3 cm; Wt 64.7 kg
[~2023-08-29 17:28] MED LIST changes: +ATOR40TA PO; +ELIQUIS5 M2 PO; +Hair, Skin & N1 EACH PO; -MULVITMIND PO
[2023-08-29] MEDS ORDERED: NS 1,000 ML IV SCH ×2 (17:50→21:15)
[2023-08-29 18:32] LABS: Hematocrit 36.4 % (33.0-51.0); Mean Corpuscular HGB 29.9 pg (26.0-34.0); Mean Corpuscular Volume 91 fL (80-100); Mean Platelet Volume 11.1 fL (9.1-12.4); NRBC ABSOLUTE 0.02 K/mm3 (0.00-0.02); Platelet Count 237 K/mm3 (150-400); RDW Coefficient Variation 16.5 % (11.7-14.2); RDW Standard Deviation 53.2 fL (35.1-46.3); Red Blood Cell Count 4.02 M/mm3 (3.80-5.20); White Blood Cell Count 1.94 K/mm3 (4.00-11.30)
[2023-08-29 18:49] LABS: Source, Urine Straight Cath
[2023-08-29 19:01] LABS: Appearance, Urine Clear (Clear); Blood, Urine Neg (Neg); Color, Urine Amber (P-Yellow); Glucose Qualitative, Urine Neg (Neg); Ketones, Urine 3+ (Neg); Leukocyte Esterase, Urine 1+ (Neg); Nitrite, Urine Neg (Neg); Protein, Urine 3+ (Neg); Specific Gravity, Urine 1.025 (1.003-1.022); Urobilinogen, Urine 1+ (Normal)
[2023-08-29 19:01] LABS: Base Excess Venous 4.4 mmol/L; Bicarbonate Venous 27.2 mmol/L (24.0-30.0); PCO2 Venous 49.5 mmHg (38-42); pH Blood Venous 7.38 (7.34-7.37)
[2023-08-29 19:05] LABS: BASOPHILS PERCENT MAN 0 % (0-2); EOSINOPHILS PERCENT MAN 0 % (0-6); MYELOCYTE ABSOLUTE MAN 0.05 K/mm3 (0.00-0.00); MYELOCYTE PERCENT MAN 3 % (0-0); SEG NEUTROPHILS PERCENT MAN 46 % (41-73); TOTAL CELLS COUNTED 100
[2023-08-29 19:09] LABS: BAND PERCENT MAN 6 % (0-8); LYMPHOCYTES % ATYPICAL MANUAL 2 % (0-0); LYMPHOCYTES ABSOLUTE MAN 0.23 K/mm3 (0.84-5.20); LYMPHOCYTES PERCENT MAN 10 % (21-46); METAMYELOCYTE ABSOLUTE MAN 0.01 K/mm3 (0.00-0.00); METAMYELOCYTE PERCENT MAN 1 % (0-0); MONOCYTES ABSOLUTE MAN 0.62 K/mm3 (0.16-1.47); MONOCYTES PERCENT MAN 32 % (4-13)
[2023-08-29 19:11] LABS: Albumin, Blood 2.9 g/dL (3.4-5.0); Albumin/Globulin Ratio 0.7 (0.8-1.8); Bun/Creatinine Ratio 36.2 (12.0-20.0); Creatinine, Blood 0.58 mg/dL (0.40-1.00); Globulin, Blood 4.1 g/dL (2.2-4.0); Potassium, Blood 3.7 mmol/L (3.5-5.5); Thyroid Stimulating Hormone 0.346 uIU/mL (0.360-4.800)
[2023-08-29 19:12] LABS: Influenza A, PCR NEGATIVE (NEGATIVE); Influenza B, PCR NEGATIVE (NEGATIVE); Resp Syncytial Virus, PCR NEGATIVE (NEGATIVE)
[2023-08-29 19:14] LABS: Bilirubin, Urine 1+ (Neg)
[2023-08-29 19:16] LABS: Bacteria Many /hpf; Hyaline Casts 0-2 /lpf (0-2); Mucus Light (0-Heavy); Red Blood Cells, Urine 0-2 /hpf (0-2); Squamous Epithelial Cells Few /hpf (Few)
[2023-08-29 19:17] LABS: Renal Epithelial Rare /hpf (0-Rare)
[2023-08-29] MEDS ORDERED: CefTRIAXone Sodium 1,000 MG in NS 50 ML IV ONE (19:25)
[2023-08-29 19:37] LABS: SARS-Cov-2 (COVID-19) PCR, MMC POSITIVE (NEGATIVE)
[2023-08-29 20:07] LABS: Free Thyroxine 1.45 ng/dL (0.70-1.60)
[2023-08-29] MEDS ORDERED: Ipratropium/Albuterol SulF 2.5-0.5MG/3 ML Amp INH SCH (21:10)
[2023-08-29] MEDS ORDERED: Ondansetron HCl 2 MG / ML 2ML Vial IV PRN (21:10)
[2023-08-29] MEDS ORDERED: Acetaminophen 325 MG TABLET PO PRN (21:15)
[2023-08-29] MEDS ORDERED: Albuterol 2.5 MG/3 ML VIAL INH PRN (21:15)
[2023-08-29] MEDS ORDERED: MetroNIDAZOLE 500MG/NS 100 ml 100 ML IV SCH (22:00)
[2023-08-29] MEDS ORDERED: ONDA4ODT PO (22:41)
--- NOTE | 2023-08-29 23:58 | NUR ---
ADMIT NOTE 72 YR OLD FEMALE ADMITTE TO FLOOR FROM THE ED WITH DX OF TOXIC METABOLIC ENCEPHALOPATHY AND COVID +. HAS CANCER, RECENT CHEMO. POOR HISTORIAN, SLOW RO RESPOND VERBALLY. NOTE REDDENED AREA OF BUTTOCKS, NOT OPER, CREAM APPLIED. (SEE PIC). ALSO NOTE OLD SCAR SURGICAL AREA OF LEFT LEG. HOB ELEVATED AND RAILS UP X 3. ORIENTED TO USE OF CALL LIGHT. CALL LIGHT IN REACH. NEUTROPENIC AND ENHANCED ISOLATIONS APPLIED. WILL CONTINUE TO MONITOR
[2023-08-30 00:05] VITALS: BP 167/66
--- NOTE | 2023-08-30 03:55 | NUR ---
TROUT FARMER SUMMARY ADMITTED EARLIER IN THE SHIFT WITH DX OF TOXIC METAB ENCEPHALOPATHY. ALSO HAS CANCER, RECEIVING CHEMO FOR IT. ED RN DID NOT KNOW WHERE CANCER WAS AT. PT VERBALIZATIONS MUMBLING AND DIFFICULT TO UNDERSTAND. WILL HAVE AM RN FOLLOW UP. BP ELEVATED AND HR RAPID, OTHERWISE VSS. PT ON ISOLATION PRECAUTIONS FOR BOTH COVID + AND NEUTROPENIC FOR CANCER/CHEMO. HOB ELEVATED ON O2 AT 3L/MIN PER NC. LUNG SOUNDS DIMINISHED PER AUSCULTATION. NPO, IVF ON NS INFUSING AT 125 ML/HR. HAS BEEN RESTING QUIETLY WITH FEW INTERRUPTOINS SINCE ADMISSION. RAILS UP X 2, CALL LIGHT IN REACH AND BED IN LOW POSITION FOR SAFETY.
[2023-08-30 06:35] VITALS: BP 154/64
[2023-08-30 06:42] LABS: Hematocrit 32.7 % (33.0-51.0); Hemoglobin 10.6 g/dL (11.5-16.0); Mean Corpuscular HGB 29.9 pg (26.0-34.0); Mean Corpuscular HGB Conc 32.4 g/dL (31.5-36.5); Mean Corpuscular Volume 92 fL (80-100); Mean Platelet Volume 11.1 fL (9.1-12.4); Platelet Count 227 K/mm3 (150-400); RDW Coefficient Variation 16.8 % (11.7-14.2); RDW Standard Deviation 55.4 fL (35.1-46.3); Red Blood Cell Count 3.54 M/mm3 (3.80-5.20); White Blood Cell Count 3.41 K/mm3 (4.00-11.30)
[2023-08-30 06:59] LABS: Bun/Creatinine Ratio 22.8 (12.0-20.0); Calcium, Blood 9.1 mg/dL (8.5-10.1); Creatinine, Blood 0.57 mg/dL (0.40-1.00); Magnesium, Blood 1.9 mg/dL (1.6-2.4); Potassium, Blood 3.6 mmol/L (3.5-5.5)
[2023-08-30 07:15] LABS: BAND PERCENT MAN 7 % (0-8); BASOPHILS ABSOLUTE MAN 0.03 K/mm3 (0.00-0.23); BASOPHILS PERCENT MAN 1 % (0-2); EOSINOPHILS PERCENT MAN 0 % (0-6); LYMPHOCYTES ABSOLUTE MAN 0.44 K/mm3 (0.84-5.20); LYMPHOCYTES PERCENT MAN 13 % (21-46); METAMYELOCYTE ABSOLUTE MAN 0.23 K/mm3 (0.00-0.00); METAMYELOCYTE PERCENT MAN 7 % (0-0); MONOCYTES ABSOLUTE MAN 0.92 K/mm3 (0.16-1.47); MONOCYTES PERCENT MAN 27 % (4-13); MYELOCYTE PERCENT MAN 3 % (0-0); NEUTROPHILS ABSOLUTE MAN 1.67 K/mm3 (1.96-9.15); SEG NEUTROPHILS PERCENT MAN 42 % (41-73); TOTAL CELLS COUNTED 100
[2023-08-30] MEDS ORDERED: Apixaban 5 MG Tab PO SCH (09:00)
[2023-08-30] MEDS ORDERED: Atorvastatin 10 MG Tab PO SCH (09:00)
[2023-08-30] MEDS ORDERED: PREG100 PO (12:56)
[2023-08-30 14:15] VITALS: BP 136/67
--- NOTE | 2023-08-30 16:33 | NUR ---
CONSULT NOTE: DR. JARAMILLO CONSULTED THE PT THIS AFTERNOON. STATED "SHE LOOKS GOOD, ON PAPER SHE DOESN'T BUT SEEING HER, SHE LOOKS GOOD". NO NEW ORDERS AT THIS TIME.
--- NOTE | 2023-08-30 18:26 | NUR ---
SHIFT SUMMARY PT AOX3, FORGETFUL AT TIMES. MUCH MORE CLEAR AND ARTICULATE THIS EVENING THAN THIS AM. ABLE TO MAKE HER NEEDS KNOWN. EXCORIATION TO HER CAMILLE AREA AND COCCYX, PT REPOSITIONED T/O THE SHIFT AND BARRIER CREAM APPLIED T/O THE SHIFT. MEDICATED FOR A RANKIN PER THE EMAR. PT HAS A GOOD APPETITE. SHE IS INCONTINENT AND BRIEFS CHANGED NEEDED. SHE IS A 1 ASSIST TO THE CHAIR AND TOLERATES IT WELL. CALL LIGHT WITHIN REACH, BED LOCKED AND IN THE LOWEST POSITION. WILL REPORT TO ONCOMING NURSE.
[2023-08-30 20:20] VITALS: BP 134/59
[2023-08-30] MEDS ORDERED: Lactobacil 2-S.Thermo-Bifido 1 1 Cap PO SCH (21:00)
[2023-08-30] MEDS ORDERED: CefTRIAXone Sodium 1,000 MG in NS 100 ML IV SCH (21:00)
[2023-08-31 02:17] LABS: Adenovirus F 40/41 Not Detected (NOT DETECT); Astrovirus Not Detected (NOT DETECT); Campylobacter Sp Not Detected (NOT DETECT); Cryptosporidium Not Detected (NOT DETECT); Cyclospora Cayetanensis Not Detected (NOT DETECT); E. Coli O157 Not Detected (NOT DETECT); Entamoeba Histolytica Not Detected (NOT DETECT); Enteroaggregative E. coli-EAEC Not Detected (NOT DETECT); Enteropathogenic E. coli-EPEC Not Detected (NOT DETECT); Enterotoxigenic E. coli-ETEC Not Detected (NOT DETECT); Giardia Lamblia Not Detected (NOT DETECT); Norovirus GI/GII Not Detected (NOT DETECT); Plesiomonas Shigelloides Not Detected (NOT DETECT); Rotavirus A Not Detected (NOT DETECT); Salmonella Sp Not Detected (NOT DETECT); Sapovirus Not Detected (NOT DETECT); Shiga Toxin-prod E. coli-STEC Not Detected (NOT DETECT); Shigella/Enteroin E. coli-EIEC Not Detected (NOT DETECT); Vibrio Cholerae Not Detected (NOT DETECT); Vibrio Sp Not Detected (NOT DETECT); Yersinia Enterocolitica Not Detected (NOT DETECT)
[2023-08-31 05:04] VITALS: BP 154/78
--- NOTE | 2023-08-31 05:31 | NUR ---
SHIFT SUMMARY NOC PT A/O X 3. FORGETFUL AT TIMES AND TAKES TIME TO ORIENT TO ANSWER APPROPRIATELY. VSS. GI PANEL CAME BACK NEGATIVE. 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 PT STRENGTH IMPROVING ONLY 1 PERSON SBA TO BATHROOM FOR BM. PT ON O2 3L/NC WHICH IS BASELINE WITH SPO2>92%. PUREWICK IN PLACE DUE TO PT WANTING TO SLEEP BETTER WITHOUT HAVING TO GET UP FREQUENTLY TO USE BATHROOM. INFUSION OF NS @ 125 ML/HR RUNNING. PT IS CURRENTLY RESTING WITH BED ALARM ON, BED IN LOWEST POSITION, AND CALL LIGHT WITHIN REACH.
[2023-08-31 06:17] LABS: Hematocrit 31.2 % (33.0-51.0); Hemoglobin 9.9 g/dL (11.5-16.0); Mean Corpuscular HGB 29.3 pg (26.0-34.0); Mean Corpuscular HGB Conc 31.7 g/dL (31.5-36.5); Mean Corpuscular Volume 92 fL (80-100); Mean Platelet Volume 10.5 fL (9.1-12.4); Platelet Count 286 K/mm3 (150-400); RDW Coefficient Variation 16.8 % (11.7-14.2); RDW Standard Deviation 55.8 fL (35.1-46.3); Red Blood Cell Count 3.38 M/mm3 (3.80-5.20); White Blood Cell Count 4.36 K/mm3 (4.00-11.30)
[2023-08-31 06:36] LABS: Bun/Creatinine Ratio 20.4 (12.0-20.0); Calcium, Blood 8.8 mg/dL (8.5-10.1); Creatinine, Blood 0.49 mg/dL (0.40-1.00); Potassium, Blood 2.9 mmol/L (3.5-5.5)
[2023-08-31 06:50] LABS: BAND PERCENT MAN 6 % (0-8); BASOPHILS PERCENT MAN 0 % (0-2); EOSINOPHILS PERCENT MAN 0 % (0-6); LYMPHOCYTES % ATYPICAL MANUAL 2 % (0-0); LYMPHOCYTES ABSOLUTE MAN 0.61 K/mm3 (0.84-5.20); LYMPHOCYTES PERCENT MAN 12 % (21-46); METAMYELOCYTE ABSOLUTE MAN 0.43 K/mm3 (0.00-0.00); METAMYELOCYTE PERCENT MAN 10 % (0-0); MONOCYTES ABSOLUTE MAN 0.34 K/mm3 (0.16-1.47); MONOCYTES PERCENT MAN 8 % (4-13); MYELOCYTE ABSOLUTE MAN 0.13 K/mm3 (0.00-0.00); MYELOCYTE PERCENT MAN 3 % (0-0); NEUTROPHILS ABSOLUTE MAN 2.83 K/mm3 (1.96-9.15); SEG NEUTROPHILS PERCENT MAN 59 % (41-73); TOTAL CELLS COUNTED 100
[2023-08-31 07:21] VITALS: BP 130/91
[2023-08-31] MEDS ORDERED: Potassium Chloride 40 MEQ in NS 250 ML IV ONE (07:30)
[2023-08-31 15:11] VITALS: BP 140/54
--- NOTE | 2023-08-31 16:33 | NUR ---
Pt remains A&Ox3, forgetful this shift. VSS. Denies pain. Resp clear, diminished on 4LNC. Up to bathroom with SBA. Brief on if needed. Purewick in place. RAC IV infusing 0.9NS at 125ml/hr. Redness noted to butt/back of thigh with area of dryness. Cream applied, encouraged to reposition self more frequently off bottom. Pt verbalizes understanding. Pain and safety maintained. Calls appropriately.
[2023-08-31 19:27] VITALS: BP 139/50
--- NOTE | 2023-09-01 04:52 | NUR ---
SHIFT SUMMARY NOC PT A/O X 3. FORGETFUL AT TIMES. VSS. PT NO LONGER WANTS PUREWICK IN PLACE AND HAS BSC FOR ELIMINATION NEEDS. PT USING CALL LIGHT APPROPRIATELY, BUT BED ALARM ON BECAUSE PT IS FORGETFUL AT TIMES. ON O2 4L/NC MAINTAINING SPO2 >92%. NS INFUSING @ 125 ML/HR. PT VERBALIZED UNDERSTANDING TO REPOSITION SELF MORE FREQUENTLY OFF BACKSIDE TO PREVENT PRESSURE INJURIES. PT ON ENHANCED/NEUTROPENIC ISOLATION FOR COVID 19 AND LOW WBC FROM LYMPHOMA. PT CURRENTLY RESTING WITH BED ALARM ON, BED IN LOWEST POSITION, AND CALL LIGHT WITHIN REACH.
[2023-09-01 05:28] VITALS: BP 160/59
[2023-09-01 07:31] VITALS: BP 158/65
[2023-09-01 07:32] VITALS: BP 158/65
[2023-09-01] MEDS ORDERED: Furosemide 10 MG/ML 4ML Vial IV ONE (07:50)
--- NOTE | 2023-09-01 08:02 | NUR ---
PLACED SPIRITUAL CARE CONSULT D/T PT'S CURRENT HEALTH STATUS. SHE WAS PREVIOUSLY SEEN BY [facility] DURING 2020 ADMISSION.
[2023-09-01 09:10] LABS: Hematocrit 31.4 % (33.0-51.0); Hemoglobin 10.1 g/dL (11.5-16.0); Mean Corpuscular HGB 28.9 pg (26.0-34.0); Mean Corpuscular HGB Conc 32.2 g/dL (31.5-36.5); Mean Corpuscular Volume 90 fL (80-100); Mean Platelet Volume 10.5 fL (9.1-12.4); Platelet Count 343 K/mm3 (150-400); RDW Coefficient Variation 16.8 % (11.7-14.2); RDW Standard Deviation 54.2 fL (35.1-46.3); Red Blood Cell Count 3.49 M/mm3 (3.80-5.20); White Blood Cell Count 4.69 K/mm3 (4.00-11.30)
[2023-09-01 09:32] LABS: Bun/Creatinine Ratio 7.3 (12.0-20.0); Creatinine, Blood 0.41 mg/dL (0.40-1.00); Magnesium, Blood 1.4 mg/dL (1.6-2.4); Potassium, Blood 2.9 mmol/L (3.5-5.5)
[2023-09-01 09:36] LABS: BAND PERCENT MAN 4 % (0-8); BASOPHILS PERCENT MAN 0 % (0-2); EOSINOPHILS PERCENT MAN 0 % (0-6); LYMPHOCYTES ABSOLUTE MAN 0.56 K/mm3 (0.84-5.20); LYMPHOCYTES PERCENT MAN 12 % (21-46); METAMYELOCYTE ABSOLUTE MAN 0.42 K/mm3 (0.00-0.00); METAMYELOCYTE PERCENT MAN 9 % (0-0); MONOCYTES ABSOLUTE MAN 0.56 K/mm3 (0.16-1.47); MONOCYTES PERCENT MAN 12 % (4-13); MYELOCYTE ABSOLUTE MAN 0.23 K/mm3 (0.00-0.00); MYELOCYTE PERCENT MAN 5 % (0-0); NEUTROPHILS ABSOLUTE MAN 2.86 K/mm3 (1.96-9.15); PROMYELOCYTE ABSOLUTE MAN 0.04 K/mm3 (0.00-0.00); PROMYELOCYTE PERCENT MAN 1 % (0-0); SEG NEUTROPHILS PERCENT MAN 57 % (41-73); TOTAL CELLS COUNTED 100
--- NOTE | 2023-09-01 10:05 | NUR ---
NO IV ACCESS- ATTEMPTED IV START AND FAILED, BLENDING PLANT OPERATOR ATTEMPTED TWICE AND FAILED. CALLED DR JUSTICE AND RECIEVED AN ORDER FOR MEDIPORT ACCESS. PT ADIMANTLY REFUSED TO HAVE IT ACCESSED STATING THERE IS BIRD FLU IN THE BLOOD. NOTIFIED AND SHE STATES THE PT IS TALKING ABOUT BIRD FLU IN THE MILK FROM THE NEW STORY RECENTLY. ORDER TO ACCESS MEDIPORT AGAIN. BLENDING PLANT OPERATOR WENT TO ACCESS THE MEDIPORT AND THE PT ADIMANTLY REFUSED AGAIN STATING THERE IS BIRD FLU IN IT AND SHE IS NOT HAVING IT. CALLED DR JUSTICE AND EXPLAINED THE SITUATION AND RECIEVED AN ORDER FOR A PG PLACEMENT. WILL SPEAK TO PT ABOUT THIS NOW.
--- NOTE | 2023-09-01 10:49 | NUR ---
CALLED DR JUSTICE- PT REFUSED IV ACCESS SAYING SHE CAN "WAIT UNTIL MONDAY" WHEMN SHE HAS AN APPOINTMENT WITH HER DOCTOR. SHE IS ADIMANT THAT SHE SPOKE TO THE DOCTOR ABOUT IT AND SHE UNDERSTOOD. DR JUSTICE NOTIFIED AND WILL COME TALK TO THE PT. UNABLE TO ADMINISTER IV LASIX AND IV ABX AT THIS TIME.
--- NOTE | 2023-09-01 14:10 | NUR ---
SPOKE TO PT ABOUT IV ACCESS- PT AGREED SHE IS OK WITH STAFF USING AND ULTRASOUND MACHINE TO PLACE A PG. SHE DOES NOT WANT TO ACCESS HER MEDIPORT. CALLED OUTPLACEMENT CONSULTANT RETAIL BUYER AND SHW WILL PLACE PG WHEN POSSIBLE.
--- NOTE | 2023-09-01 14:18 | NUR ---
"Spiritual Care | Pt. Request Pt. is awake and sitting on the josiah of her bed when she welcomes my visit. Pt. displays evidence of being emotionally guarded at first. Facilitate a life review and pt. shares about her 9 month journey with cancer. Listen with empathy and a calming presence. Pt. displays evidence of being frustrated but understanding. Prayed with Pt. Pt. verbalized gratitude for the spiritual care visit. Pt. verbalized a request that I remind the nurses about her request for a cup of coffee. This dental floss packer made the Pts. request known to the nursing staff."
[2023-09-01] MEDS ORDERED: Potassium Phosphate Dibasic 30 MM in Dextrose 5% 500 ML IV STA (14:51)
[2023-09-01] MEDS ORDERED: Magnesium Sulf 2 GM/Water 50ML 50 ML IV ONE (14:55)
[2023-09-01 14:57] VITALS: BP 158/63
--- NOTE | 2023-09-01 17:00 | NUR ---
SHIFT SUMMARY- PT ALERT TO SELF, UNCERTAIN OF DATE AND TIME, REORIENTATION REQUIRED FOR HER TO REMEMBER SHE IS IN THE HOSPITAL. PT HAD A STAT ORDER FOR IV LASIX THIS MORNING UNABLE TO ADMINISTER UNTIL IV ACCESS WAS GAINED AT AROUND 1500. AWARE. PT ACCIDENTALLY PULLED OUT PERIPHERAL IV SO AFTER PG WAS PLACED, BED ALARM WAS USED TO PROTECT THE IV. PT IS CURRENTLY IN THE SHOWER WITH THE ASSIST OF THE TECHNICAL TRAINING COORDINATOR, NO S&S OF DISTRESS.
[2023-09-01 19:34] VITALS: BP 76/62
[2023-09-01 19:35] VITALS: BP 128/114
[2023-09-02 05:47] VITALS: BP 162/68
--- NOTE | 2023-09-02 06:39 | NUR ---
SHIFT SUMMARY: Pt admitted for toxic metabolic encephalopathy and is a DNR. is alert and able to make most needs known. Some confusion noted as to seeing things that are not there and being in a different place. But was able to be redirected. Has been SBA for ADLs. on ISO for covid. Denies pain or discomfort when asked. Power glide to right upper is patent with dressing CDI.
--- NOTE | 2023-09-02 07:15 | NUR ---
ASSUMED CARE OF PT- PT VERY LETHARGIC, UNWILLING TO WAKE FOR BREAKFAST, ASSESSMENT OF THE PT SKIN REVEALED SHE HAD WET ATTENDS. UNABLE TO WAKE PT TO SAFELY TRANSFER TO BSC; ASSISTED THE PT WITH A ROLL AND CHANGE. SHE SATURATED THE BED DURRING THE CHANGE AND LINNENS WERE CHANGED TWICE. AFTER THAT THE PT WOKE AND STATED SHE NEEDED TO USE THE COMMODE. NOW AWAKE STAFF WERE ABLE TO TRANSFER HER TO THE BS. THE PT NEW ATTENDS WERE WET AND CHANGED BY STAFF. PT TRANSFERED TO THE CHAIR WHERE SHE SAT TO EAT BREAKFAST LATER. SPEECH THERAPY CAME TO SEE HER. PT HALLUCINATING AND VERY CONFUSED, TALKING ABOUT PARANOID THOUGHTS WHERE PEOPLE WERE AFTER HER MONEY. SHE IS COMPLIANT WITH STAFF BUT APPEARS TO USE A PLACATING TONE WHEN STAFF TALK TO HER ABOUT HER HEALTH CARE NEEDS. SPOKE TO DR JUSTICE ON MORNING ROUNDS SHE IS AWARE AND SHARED THE PT SPOKE TO HER ABOUT A FIRENDS INFIDELITY THAT APPARENTLY HAPPENED LAST NIGHT. THAT FRIEND CAME TO SEE THE PT TO BRING HER PURSE IN. THE PURSE CONTAINED A "LOT OF RAMON" PER THE PT FRIEND. STAFF COUNTED THE RAMON WITH THE PT AND PLACED IT IN A SEALED ENVELOPE WITH HOUSEHOLD ASSISTANT BOZENA, SENIOR QUALITY MANAGER, FIREND, ANEESH MCKEON ALL PRESENT FOR THE INTERACTION. BOZENA TOOK THE ENVELOPE TO PLACE IN THE SAFE.
[2023-09-02 07:25] VITALS: BP 167/60
[2023-09-02 07:55] LABS: Albumin, Blood 2.4 g/dL (3.4-5.0); Anion Gap 7 mmol/L (3-11); Blood Urea Nitrogen 2 mg/dL (8-24); Bun/Creatinine Ratio 4.4 (12.0-20.0); CO2, Blood 31 mmol/L (21-32); Calcium, Blood 8.4 mg/dL (8.5-10.1); Chloride, Blood 107 mmol/L (98-108); Creatinine, Blood 0.46 mg/dL (0.40-1.00); Glomerular Filtration Rate 102 (60-); Glucose, Blood 124 mg/dL (70-99); Magnesium, Blood 1.8 mg/dL (1.6-2.4); Phosphorus, Blood 3.5 mg/dL (2.5-4.9); Potassium, Blood 3.4 mmol/L (3.5-5.5); Sodium, Blood 142 mmol/L (136-145)
[2023-09-02] MEDS ORDERED: Potassium Chloride 20 MEQ TabCR PO ONE (09:00)
--- NOTE | 2023-09-02 13:56 | NUR ---
WOUND CARE- PT HAS EXCORIATION ON HER RIGHT BUTTOX EXTENDING TO THE RIGHT HIP. PLACED A MEPILEX OVER THE AREA TO PREVENT FURTHER BREAKDOWN.
--- NOTE | 2023-09-02 15:46 | NUR ---
Called palliative care- Spoke to palliative care rn Manuela. Pt friend Mini came to bring the pt her purse, at her request. The pt friend Mini states the pt lives alone and that Mini is one of the few remaining friends that will still answer the phone. Per Mini, she recieved a call from [employer] when the pt had missed several appointments asking her to check on the pt to be sure she was ok. Mini reports she found the pt curlled on the couch, totally confused and soiled and called 911. Once in the hospital she states she went back and cleaned up the mess. She was emotional when she stated the pt is not the same person she was, she has allienated her friends and they won't come around. The pt is paranoid and accusatory always thinking people are stealing from her. There is concern for a safe discharge plan. Mini conveyed concern that the pt would be right back in the hospital in a "week or two" because "she can't take care of herself." Mini states she can not help the pt at all anymore because she will accuse her of something else. Spoke to palliative care rn and transitional care liaison Deana to try to ensure a safe discharge plan is in place for when the pt is discharged home. Spoke to Dr Luna about this interaction and relayed the friends concerns. Will place an order for Care management, to look into the pt need for a safe home discharge plan.
[2023-09-02 17:14] VITALS: BP 138/91
--- NOTE | 2023-09-02 18:24 | NUR ---
SHIFT SUMMARY- PT SEEMS TO BE MORE CALM AT THIS TIME, SHE HAD A C/O NAUSEA AND WAS MEDICATED WITH IV ZOFRAN. SHE SEEMS TO BE A BIT LESS CONFUSED WITH LESS NOTABLE HALLUCINATIONS THIS EVENING. PT HAS BEEN VERY CONFUSED AND IRRITABLE T/O THE DAY, UNTIL ABOUT 1700. AT THAT TIME SHE SEEMED MORE CALM, RELAXED AND COOPERATIVE, STILL CONFUSED BUT ABLE TO FOLLOW INSTRUCTIONS MORE READILY. PT UP IN THE CHAIR EATING DINNER, O2 IN PLACE (PT REQUIRES FREQUENT REMINDERS TO KEEP THE O2 IN PLACE), NO S&S OF DISTRESS NOTED.
--- NOTE | 2023-09-02 19:28 | NUR ---
SHIFT ASSESSMENT- NOTED PT HAS FAINT PEDAL PULSES POSSIBLY R/T PEDAL EDEMA. BILATERAL FEET HAVE +1 PITTING EDEMA LLE HAS TRACE AND RLE HAS NO NOTED EDEMA. O2 SATS ARE 92% ON 4L VIA NC, IT IS DIFFICULT HOWEVER TO KEEP THE O2 ON THE PT, NOTED MODDELING OF HER BLE THIS MORNING, SHE WAS REMINDED AT EVERY INTERACTION TODAY TO WEAR HER O2 ( SHE REMOVES IT REGULARLY) SHE BECAME AGITATED WITH THE SIDEWALK INSPECTOR OVER THE O2 A COUPLE OF TIMES.
[2023-09-02 19:38] VITALS: BP 152/108
[2023-09-02 22:22] VITALS: BP 130/113
[2023-09-02 22:23] VITALS: BP 130/113
--- NOTE | 2023-09-03 04:19 | NUR ---
SHIFT SUMMARY: Pt admitted for toxic metabolic encephalopathy and is a DNR. is alert and able to make most needs known. Some confusion noted as to seeing things that are not there and being in a different place. But was able to be redirected. Has been SBA for ADLs. on ISO for covid. Denies pain or discomfort when asked. Power glide to right upper is patent with dressing CDI. elevated bp of 130/113 noted and reported to md with no new orders.
[2023-09-03 05:34] VITALS: BP 134/122
[2023-09-03 05:35] VITALS: BP 134/122
[2023-09-03 05:53] LABS: Hematocrit 32.2 % (33.0-51.0); Hemoglobin 10.3 g/dL (11.5-16.0); Mean Corpuscular HGB 29.1 pg (26.0-34.0); Mean Corpuscular Volume 91 fL (80-100); Mean Platelet Volume 10.1 fL (9.1-12.4); NRBC ABSOLUTE 0.02 K/mm3 (0.00-0.02); NRBC Auto 0.2 /100 WBC (0.0-0.2); Platelet Count 453 K/mm3 (150-400); RDW Standard Deviation 55.8 fL (35.1-46.3); Red Blood Cell Count 3.54 M/mm3 (3.80-5.20); White Blood Cell Count 8.21 K/mm3 (4.00-11.30)
[2023-09-03 06:15] LABS: Bun/Creatinine Ratio 4.2 (12.0-20.0); Calcium, Blood 8.8 mg/dL (8.5-10.1); Creatinine, Blood 0.48 mg/dL (0.40-1.00); Potassium, Blood 3.6 mmol/L (3.5-5.5)
[2023-09-03 06:20] LABS: BAND PERCENT MAN 5 % (0-8); BASOPHILS ABSOLUTE MAN 0.08 K/mm3 (0.00-0.23); BASOPHILS PERCENT MAN 1 % (0-2); EOSINOPHILS PERCENT MAN 0 % (0-6); LYMPHOCYTES ABSOLUTE MAN 0.82 K/mm3 (0.84-5.20); LYMPHOCYTES PERCENT MAN 10 % (21-46); METAMYELOCYTE ABSOLUTE MAN 0.16 K/mm3 (0.00-0.00); METAMYELOCYTE PERCENT MAN 2 % (0-0); MONOCYTES ABSOLUTE MAN 1.31 K/mm3 (0.16-1.47); MONOCYTES PERCENT MAN 16 % (4-13); MYELOCYTE ABSOLUTE MAN 0.57 K/mm3 (0.00-0.00); MYELOCYTE PERCENT MAN 7 % (0-0); NEUTROPHILS ABSOLUTE MAN 5.17 K/mm3 (1.96-9.15); PROMYELOCYTE ABSOLUTE MAN 0.08 K/mm3 (0.00-0.00); PROMYELOCYTE PERCENT MAN 1 % (0-0); SEG NEUTROPHILS PERCENT MAN 58 % (41-73); TOTAL CELLS COUNTED 100
--- NOTE | 2023-09-03 07:30 | NUR ---
ASSUMED CARE OF PT- PER REPORT FROM NIGHT RN PT O2 REQUIREMENTS INCREASED IN THE NIGHT. PT CURRENTLY ON 5L VIA NC. YHIS RN AND RN STUDENT WENT TO THE BEDSIDE TO PERFORM ASSESSMENT AND MORNING VITALS. PT RESPERATIONS WERE SHALLOW AND FAST (RATE 44) LUNG SOUNDS WERE DEMINISHED WITH SOME FINE CRACKLES IN THE UPPER LOBES. O2 SATS 89-92% ON 5L VIA NC. CALLED RT AND THEY WERE UNABLE TO RESPOND AT THAT TIME. CALLED DR JUSTICE, NOIFIED HER AND RECIEVE AN ORDER FOR IV LASIX. MD ARRIVED AT THE BEDSIDE LATER WHEN RT ARRIVED, BY THAT TIME THE PT HAD SAT UP AT THE EDGE OF THE BED AND WAS BREATHING A BIT MORE SLOWLY O2 SATS WERE INCREASED TO 96%. RT REDUCED O2 TO 3L VIA NC. IV LASIX WAS GIVEN, MD AWARE. PT WAS CONFRONTATIONAL WITH THIS RN AND DID NOT WANT TO DO ANYTHING SUGGESTED BY THIS RN, MAKING RUDE COMMENTS AND THEN TRYING TO SAY IT WAS A JOKE, HER ACTIONS AND WORDS WERE LESS THOUGHTFULL AND MORE COMPULSIVE THAN ALL PRIOR INTERACTIONS THIS RN HAD WITH THE PT.
[2023-09-03 07:49] VITALS: BP 153/70
[2023-09-03] MEDS ORDERED: Furosemide 10 MG/ML 4ML Vial IV ONE (08:20)
[2023-09-03 09:03] VITALS: BP 147/75
[2023-09-03 14:05] VITALS: BP 146/69
[2023-09-03] MEDS ORDERED: Potassium Chloride 10 Meq Tablet SA PO SCH (17:00)
--- NOTE | 2023-09-03 18:16 | NUR ---
SHIFT REPORT PT AMBULATES WITH 1P STANDBY. PT WAS RECEPTIVE TO CARE. PT STATED SHE HAD STOMACH PAIN AND HAD SMALL BM THIS SHIFT. AAX3 AT TIMES. PT HAS HAD A SMALL APPETITE THIS SHIFT. O2 IN PLACE AT 5L. VITAL SIGNS REVIEWED. CALL LIGHT WITHIN REACH.
[2023-09-03 21:48] VITALS: BP 140/52
[2023-09-04 04:08] VITALS: BP 146/47
--- NOTE | 2023-09-04 06:01 | NUR ---
SHIFT SUMMARY: Pt admitted for toxic metabolic encephalopathy and is a DNR. is alert and able to make most needs known. Confusion from last night is better but still present. Has been SBA for ADLs. on ISO for covid. Denies pain or discomfort when asked. Power glide to right upper is patent with dressing CDI.
[2023-09-04 06:24] LABS: Bun/Creatinine Ratio 9.7 (12.0-20.0); Calcium, Blood 8.8 mg/dL (8.5-10.1); Creatinine, Blood 0.41 mg/dL (0.40-1.00); Potassium, Blood 3.4 mmol/L (3.5-5.5)
[2023-09-04 07:03] VITALS: BP 153/71
[2023-09-04] MEDS ORDERED: Potassium Chloride 10 Meq Tablet SA PO STA (08:18)
[2023-09-04] MEDS ORDERED: NS 250 ML IV PRN (08:30)
[2023-09-04] MEDS ORDERED: Furosemide 40 MG Tab PO SCH (09:00)
[2023-09-04 15:35] VITALS: BP 126/56
--- NOTE | 2023-09-04 18:23 | NUR ---
SHIFT SUMMARY: NO ACUTE EVENTS. ALVARO REMAINS COMFUSED, HAS TROUBLE FOLLOWING DIRECTIONS, STML, SOME PARANOIA. IS NON-COMPLIANT WITH O2. C/O ABD CRAMPING THIS MORNING; TYLENOL AND ZOFRAN GIVEN WITH ADEQUATE RELIEF. SERUM POTASSIUM 3.4, REPLACED WITH KCL 20 MEQ. HAS EXCORIATION ON BUTTOCKS FROM FREQUENT STOOLS. AWAITING GUARDIANSHIP/PLACEMENT.
[2023-09-04 19:39] VITALS: BP 149/55
[2023-09-05 02:48] VITALS: BP 143/61
--- NOTE | 2023-09-05 04:12 | NUR ---
SHIFT SUMMARY 72 YR F ADMITTED ON 08/30/23. DNR. NO ACUTE CHANGES THIS SHIFT. PT HAD NO C/O PAIN OR DISCOMFORT THIS SHIFT. SHE WAS MOSTLY COMPLIANT W/ O2, ONLY TAKING IT OFF A COUPLE OF TIMES. DIARRHEA SEEMS TO HAVE RESOLVED, NO BM THIS SHIFT. PT HAS BEEN PLEASANT AND COOPERATIVE THIS SHIFT. SHE SLEPT OFF AND ON THROUGHOUT THE NIGHT. BED IN LOW POSITION AND CALL LIGHT IN REACH. WILL CONTINUE TO MONITOR.
[2023-09-05 07:10] VITALS: BP 128/57
[2023-09-05 15:28] VITALS: BP 106/70
[2023-09-05] MEDS ORDERED: Banana Flakes/Tos 1 EA Powder Pack PO SCH (18:00)
--- NOTE | 2023-09-05 18:44 | NUR ---
SHIFT SUMMARY: NO ACUTE EVENTS. BM'S HAVE SLOWED DOWN. SKIN EXCORIATION ON GLUTEAL CLEFT HAS IMPROVED. DENIED PAIN. GETTING UP TO BR WITH ONE PERSON ASSIST. IS MORE COMPLIANT WITH OXYGEN USE SINCE ADDING HUMIDIFICATION. APPEARED MORE FATIGUED TODAY. WORKED WITH PT/OT, MMSE COMPLETED BY OT.
[2023-09-05 19:30] VITALS: BP 162/76
[2023-09-06 02:19] VITALS: BP 133/60
--- NOTE | 2023-09-06 05:47 | NUR ---
PT IS A&O X 4 BUT FORGETFUL AT TIMES, BP WAS A LITTLE ELEVATED AT THE BEGINING OF THE SHIFT BUT IT'S CURRENTLY STABLE. PT COMPLAINED OF A 10/10 PAIN TO LOWER ABD AND PRN MED WAS GIVEN FOR PAIN. UPON REASSESSMENT PT WAS SLEEPING AND DIDN'T APPEAR TO BE IN PAIN.
[2023-09-06 07:06] VITALS: BP 155/52
[2023-09-06 07:59] LABS: Hemoglobin 10.2 g/dL (11.5-16.0); Mean Corpuscular HGB 28.9 pg (26.0-34.0); Mean Corpuscular HGB Conc 30.9 g/dL (31.5-36.5); Mean Corpuscular Volume 94 fL (80-100); Platelet Count 529 K/mm3 (150-400); RDW Standard Deviation 56.7 fL (35.1-46.3); Red Blood Cell Count 3.53 M/mm3 (3.80-5.20); White Blood Cell Count 9.17 K/mm3 (4.00-11.30)
[2023-09-06 08:14] LABS: Bun/Creatinine Ratio 9.8 (12.0-20.0); Creatinine, Blood 0.41 mg/dL (0.40-1.00); Potassium, Blood 3.6 mmol/L (3.5-5.5)
--- NOTE | 2023-09-06 11:13 | NUR ---
Spiritual Care Visit. Pt. is awake and sitting on the side of her bed. Pt. is pleasant but displays evidence of defeat. Facilitate a life review that focuses on the meaning of her halth reynolds. Pt. verbalizes that she has support from her son, and that she expects to be discharged home, if he can come and pick her up. Pastoral encouragement is given as is prayer. The Pt. displayed a smile and expressed a lightened mood. Pt. verbalized gratitude for the spiritual care visits.
[2023-09-06] MEDS ORDERED: BANATROL PLUS1 EAC1 PO (11:48)
--- NOTE | 2023-09-06 15:41 | NUR ---
PT DISCHARGED HOME 1440, WHEELCHAIR OUT TO PRIVATE CAR, NEPHEW TO DRIVE PT HOME. 2 BAGS OF BELONGINGS, MONEY RETRIECEV FROM SAFE, RN COUNTED MONEY WIHT PT, CONFIRMED 4-50$, 15- 20$- 5-5$, TOTAL 505 $. OXYGEN OFF
--- NOTE | 2023-09-06 15:44 | NUR ---
CONT- DISCHARGE. OXYGEN OFF FOR THE RIDE HOME, PT RESP EVEN UNLABORED, STATES SHE WILL BE FINE WITHOUT O2 UNTIL SHE GETS HOME.
== END 2023-09-06 14:39 | disposition home health service (06) | DRG 871 ==
LOC: ER 17:28 → MEDS 17:29 → ENPENDDIS 09-06 11:23 → MEDS 09-06 14:39
PROVIDERS: Internal Medicine; Nurse Practitioner Acute Care; Student in an Organized Health Care Education/Training Program; ADMIT Internal Medicine
DX: A41.51 Sepsis due to Escherichia coli [E. coli] (principal); G92.8 Other toxic encephalopathy; J96.21 Acute and chronic respiratory failure with hypoxia; U07.1 COVID-19; E87.20 Acidosis, unspecified; I50.32 Chronic diastolic (congestive) heart failure; D84.9 Immunodeficiency, unspecified; C83.30 Diffuse large B-cell lymphoma, unspecified site; N39.0 Urinary tract infection, site not specified; R65.20 Severe sepsis without septic shock; K52.9 Noninfective gastroenteritis and colitis, unspecified; Z66 Do not resuscitate; F17.210 Nicotine dependence, cigarettes, uncomplicated; F12.90 Cannabis use, unspecified, uncomplicated; F10.90 Alcohol use, unspecified, uncomplicated; I11.0 Hypertensive heart disease with heart failure; J44.9 Chronic obstructive pulmonary disease, unspecified; E87.5 Hyperkalemia; F15.90 Other stimulant use, unspecified, uncomplicated; Z99.81 Dependence on supplemental oxygen; I73.9 Peripheral vascular disease, unspecified; Z86.16 Personal history of COVID-19; E87.6 Hypokalemia; E83.39 Other disorders of phosphorus metabolism; E83.42 Hypomagnesemia; Z86.73 Personal history of transient ischemic attack (TIA), and cerebral infarction without residual deficits; E86.0 Dehydration; Z86.718 Personal history of other venous thrombosis and embolism; Z88.0 Allergy status to penicillin; Z88.8 Allergy status to other drugs, medicaments and biological substances; Z79.01 Long term (current) use of anticoagulants; Z79.899 Other long term (current) drug therapy; Z79.82 Long term (current) use of aspirin; Z90.710 Acquired absence of both cervix and uterus; Z90.49 Acquired absence of other specified parts of digestive tract; Z98.890 Other specified postprocedural states; Z68.29 Body mass index [BMI] 29.0-29.9, adult; R62.7 Adult failure to thrive
CPT/HCPCS: 0241U; 36415; 70450; 71045; 74177; 80048; 80053; 80069; 81001; 82803; 83605; 83690; 83735; 84100; 84439; 84443; 85025; 85027; 87040; 87077; 87086; 87186; 87507; 92507; 92523; 92610; 93005; 93010; 94640; 94664; 94760; 94762; 96361; 96365-59; 96366; 97116; 97129; 97161; 97166; 97530; 97535; 99285-25; A9270; C1751; G0378; J0696; J1940; J2405; J3475; J3480; J7030; J7050; J7060; Q9967

== ENCOUNTER 2023-10-20 19:42 | Emergency (ER) | payer MEDICARE ==
[~2023-10-20] VITALS: Ht 167.6 cm; Wt 68.0 kg
[~2023-10-20 19:42] MED LIST changes: +ALMACONE SUSPE355 ML PO; +BANATROL PLUS1 EAC1 PO; +CALCIUM 600-VI1 EAC6 PO; +DOXY100 PO; +LEVO750 PO; +Nicoderm Cq1 EAC1 TOP; +ONDA4ODT PO; +PREG100 PO; +PROBIOTIC1 EA13 PO
[2023-10-20 20:04] LABS: Hematocrit 31.3 % (33.0-51.0); Hemoglobin 10.1 g/dL (11.5-16.0); Mean Corpuscular HGB 30.4 pg (26.0-34.0); Mean Corpuscular HGB Conc 32.3 g/dL (31.5-36.5); Mean Corpuscular Volume 94 fL (80-100); Mean Platelet Volume 9.8 fL (9.1-12.4); Platelet Count 302 K/mm3 (150-400); RDW Standard Deviation 62.4 fL (35.1-46.3); Red Blood Cell Count 3.32 M/mm3 (3.80-5.20); White Blood Cell Count 27.22 K/mm3 (4.00-11.30)
[2023-10-20 20:22] LABS: Albumin, Blood 2.6 g/dL (3.4-5.0); Albumin/Globulin Ratio 0.9 (0.8-1.8); Bilirubin, Total 0.3 mg/dL (0.1-1.0); Bun/Creatinine Ratio 15.1 (12.0-20.0); Calcium, Blood 8.6 mg/dL (8.5-10.1); Creatinine, Blood 0.4 mg/dL (0.40-1.00); Globulin, Blood 2.8 g/dL (2.2-4.0); Potassium, Blood 3.6 mmol/L (3.5-5.5); Total Protein, Blood 5.4 g/dL (6.4-8.2)
[2023-10-20] MEDS ORDERED: NS 1,000 ML IV SCH (20:25)
[2023-10-20 20:47] LABS: BAND PERCENT MAN 17 % (0-8); BASOPHILS PERCENT MAN 0 % (0-2); EOSINOPHILS PERCENT MAN 0 % (0-6); LYMPHOCYTES ABSOLUTE MAN 1.08 K/mm3 (0.84-5.20); LYMPHOCYTES PERCENT MAN 4 % (21-46); MONOCYTES ABSOLUTE MAN 1.63 K/mm3 (0.16-1.47); MONOCYTES PERCENT MAN 6 % (4-13); NEUTROPHILS ABSOLUTE MAN 24.49 K/mm3 (1.96-9.15); SEG NEUTROPHILS PERCENT MAN 73 % (41-73); TOTAL CELLS COUNTED 100
[2023-10-20 21:30] LABS: Source, Urine Clean Catch
[2023-10-20 21:40] LABS: Appearance, Urine Clear (Clear); Bilirubin, Urine Neg (Neg); Blood, Urine Neg (Neg); Color, Urine Yellow (P-Yellow); Glucose Qualitative, Urine Neg (Neg); Ketones, Urine Neg (Neg); Leukocyte Esterase, Urine Neg (Neg); Nitrite, Urine Neg (Neg); Protein, Urine 1+ (Neg); Urobilinogen, Urine NORM (Normal)
[2023-10-20 21:57] LABS: Influenza A, PCR NEGATIVE (NEGATIVE); Influenza B, PCR NEGATIVE (NEGATIVE); Resp Syncytial Virus, PCR NEGATIVE (NEGATIVE)
[2023-10-20 22:11] LABS: SARS-Cov-2 (COVID-19) PCR, MMC POSITIVE (NEGATIVE)
[2023-10-20 23:15] VITALS: BP 104/72
== END 2023-10-20 23:20 | disposition home or self-care (01) ==
LOC: ER 19:42
PROVIDERS: Emergency Medicine
DX: U07.1 COVID-19 (principal); Z88.0 Allergy status to penicillin; Z79.899 Other long term (current) drug therapy; I10 Essential (primary) hypertension; J44.9 Chronic obstructive pulmonary disease, unspecified; E78.5 Hyperlipidemia, unspecified; M10.9 Gout, unspecified; F17.210 Nicotine dependence, cigarettes, uncomplicated
CPT/HCPCS: 0241U; 36415; 71045; 80053; 83605; 85025; 93005; 93010; 99285-25

== ENCOUNTER 2023-10-27 16:33 | Emergency (ER) | payer MEDICARE ==
[~2023-10-27] VITALS: Ht 167.6 cm; Wt 61.2 kg
[2023-10-27 17:08] VITALS: BP 118/56
[2023-10-27] MEDS ORDERED: NS 1,000 ML IV SCH (17:10)
[2023-10-27 17:46] LABS: BASOPHILS ABSOLUTE AUTO 0.07 K/mm3 (0.00-0.23); BASOPHILS PERCENT AUTO 1 % (0-2); EOSINOPHILS ABSOLUTE AUTO 0.09 K/mm3 (0.00-0.68); EOSINOPHILS PERCENT AUTO 1 % (0-6); Hematocrit 32.5 % (33.0-51.0); Hemoglobin 10.1 g/dL (11.5-16.0); IMMATURE GRAN ABSOLUTE AUTO 0.14 K/mm3 (0.00-0.10); IMMATURE GRAN PERCENT AUTO 1 % (0-1); LYMPHOCYTES ABSOLUTE AUTO 1.11 K/mm3 (0.84-5.20); LYMPHOCYTES PERCENT AUTO 8 % (21-46); MONOCYTES ABSOLUTE AUTO 1.05 K/mm3 (0.16-1.47); MONOCYTES PERCENT AUTO 7 % (4-13); Mean Corpuscular HGB 30.7 pg (26.0-34.0); Mean Corpuscular HGB Conc 31.1 g/dL (31.5-36.5); Mean Corpuscular Volume 99 fL (80-100); NEUTROPHILS ABSOLUTE AUTO 12.31 K/mm3 (1.96-9.15); NEUTROPHILS PERCENT AUTO 83 % (41-73); Platelet Count 259 K/mm3 (150-400); RDW Standard Deviation 68.1 fL (35.1-46.3); Red Blood Cell Count 3.29 M/mm3 (3.80-5.20); White Blood Cell Count 14.77 K/mm3 (4.00-11.30)
[2023-10-27 18:03] LABS: Albumin, Blood 2.6 g/dL (3.4-5.0); Albumin/Globulin Ratio 0.8 (0.8-1.8); Bilirubin, Total 0.7 mg/dL (0.1-1.0); Bun/Creatinine Ratio 24.1 (12.0-20.0); Calcium, Blood 9.3 mg/dL (8.5-10.1); Creatinine, Blood 0.5 mg/dL (0.40-1.00); Globulin, Blood 3.4 g/dL (2.2-4.0); Magnesium, Blood 1.3 mg/dL (1.6-2.4); Potassium, Blood 3.9 mmol/L (3.5-5.5)
== END 2023-10-27 18:20 | disposition left against medical advice (07) ==
LOC: ER 16:33
PROVIDERS: Physician Assistant
DX: R53.83 Other fatigue (principal)
CPT/HCPCS: 80053; 83735; 85025; 99281

== ENCOUNTER 2023-11-05 20:30 | Emergency (ER) | payer MEDICARE ==
[~2023-11-05] VITALS: Ht 165.1 cm; Wt 61.2 kg
[2023-11-05 20:57] VITALS: BP 98/46
[2023-11-05 21:00] LABS: BASOPHILS ABSOLUTE AUTO 0.05 K/mm3 (0.00-0.23); BASOPHILS PERCENT AUTO 1 % (0-2); EOSINOPHILS ABSOLUTE AUTO 0.08 K/mm3 (0.00-0.68); EOSINOPHILS PERCENT AUTO 1 % (0-6); Hematocrit 32.6 % (33.0-51.0); Hemoglobin 9.9 g/dL (11.5-16.0); IMMATURE GRAN ABSOLUTE AUTO 0.04 K/mm3 (0.00-0.10); IMMATURE GRAN PERCENT AUTO 0 % (0-1); LYMPHOCYTES ABSOLUTE AUTO 1.48 K/mm3 (0.84-5.20); LYMPHOCYTES PERCENT AUTO 14 % (21-46); MONOCYTES ABSOLUTE AUTO 1.48 K/mm3 (0.16-1.47); MONOCYTES PERCENT AUTO 14 % (4-13); Mean Corpuscular HGB 29.7 pg (26.0-34.0); Mean Corpuscular HGB Conc 30.4 g/dL (31.5-36.5); Mean Corpuscular Volume 98 fL (80-100); Mean Platelet Volume 10.4 fL (9.1-12.4); NEUTROPHILS ABSOLUTE AUTO 7.82 K/mm3 (1.96-9.15); NEUTROPHILS PERCENT AUTO 71 % (41-73); Platelet Count 275 K/mm3 (150-400); RDW Coefficient Variation 17.8 % (11.7-14.2); RDW Standard Deviation 64.2 fL (35.1-46.3); Red Blood Cell Count 3.33 M/mm3 (3.80-5.20); White Blood Cell Count 10.95 K/mm3 (4.00-11.30)
[2023-11-05] MEDS ORDERED: NS 1,000 ML IV SCH (21:10)
[2023-11-05 21:21] LABS: Albumin, Blood 2.6 g/dL (3.4-5.0); Albumin/Globulin Ratio 0.8 (0.8-1.8); Bilirubin, Total 0.6 mg/dL (0.1-1.0); Calcium, Blood 8.7 mg/dL (8.5-10.1); Creatinine, Blood 0.43 mg/dL (0.40-1.00); Globulin, Blood 3.2 g/dL (2.2-4.0); Potassium, Blood 3.8 mmol/L (3.5-5.5); Total Protein, Blood 5.8 g/dL (6.4-8.2)
== END 2023-11-05 22:38 | disposition home or self-care (01) ==
LOC: ER 20:30
PROVIDERS: Emergency Medicine
DX: J44.9 Chronic obstructive pulmonary disease, unspecified (principal); D64.9 Anemia, unspecified; I10 Essential (primary) hypertension; Z88.0 Allergy status to penicillin; Z79.01 Long term (current) use of anticoagulants; Z79.899 Other long term (current) drug therapy
CPT/HCPCS: 71045; 80053; 85025; 93005; 93010; 99285-25; J7030